=== PATIENT | female | born 1950 | race Caucasian/White ===

== ENCOUNTER 2018-12-02 10:43 | Emergency (ER) | payer MEDICARE, OTHER ==
[2018-12-02] MEDS: Sodium Chloride 0.9% 1,000 ML IV SCH ×2 (11:37→15:39)
[2018-12-02] MEDS ORDERED: Insulin Regular, Human 100 Units/ML 3 ML Vial IV STA (12:02)
[2018-12-02] MEDS ORDERED: cefTRIAXone 2 GM in Sodium Chloride 0.9% 100 ML IV ONE (12:19)
[2018-12-02] MEDS ORDERED: cefTRIAXone 2 GM Vial ONE (12:32)
[2018-12-02] MEDS ORDERED: Sodium Bicarbonate 100 MEQ in Dextrose 5% in Water 100 ML IV STA ×2 (12:42)
--- NOTE | 2018-12-02 12:54 | EDM.PDOC ---
ED HPI GENERAL MEDICAL PROBLEM - General Chief Complaint: Respiratory Problem Stated Complaint: RESPIRATORY DISTRESS Time Seen by Provider: 12/02/18 10:45 Source of Information: Reports: Other (House keper) History Limitations: Reports: Respiratory Distress - History of Present Illness INITIAL COMMENTS - FREE TEXT/NARRATIVE: According to patient's house keeper- pt was short of breath when she went to see her today morning. Hence she brought her to emergency room by private vehicle. Pt is hyperventilating and appears anxious, only c/o is her low back pain. Pt has chronic low back pain and she had epidural injection done 3 days ago. No chest pain. No chest tightness. No nausea or vomiting. Pt claims she has been taking her medications, but does not feel good for past 2 days. No fever or chills. Mild cough. No other complaints. Onset: Today Onset Date: 12/02/18 Onset Time: 08:00 Improves with: Reports: None Worsens with: Reports: None Associated Symptoms: Reports: Shortness of Breath. Denies: Confusion, Chest Pain, Cough, Diaphoresis, Fever/Chills, Headaches, Nausea/Vomiting, Rash, Seizure, Syncope, Weakness - Related Data Allergies Allergy/AdvReac Type Severity Reaction Status Date / Time meperidine [From Demerol] AdvReac Nausea and Verified 05/17/16 09:42 Vomiting Home Meds: Home Meds Gabapentin [Neurontin] 300 mg PO QID 01/24/15 [History] Hydrocodone/Acetaminophen [Hydrocodon-Acetaminophen 5-325] 1 - 2 each PO Q6HR PRN 01/24/15 [History] Insulin Glarg,Human.Rec.Analog [Lantus Solostar] 20 units SQ BEDTIME 01/24/15 [ History] Lisinopril 2.5 mg PO DAILY 01/24/15 [History] Rosuvastatin Calcium [Crestor] 10 mg PO BEDTIME 01/24/15 [History] metFORMIN [Glucophage] 1,000 mg PO DAILY 01/24/15 [History] traZODone 1 - 2 tab PO BEDTIME PRN 01/24/15 [History] Past Medical History HEENT History: Reports: Impaired Vision Cardiovascular History: Reports: Other (See Below) Other Cardiovascular History: right carotid graft. Vessel disease Gastrointestinal History: Reports: Cholelithiasis Genitourinary History: Reports: Urinary Incontinence Musculoskeletal History: Reports: Back Pain, Chronic Endocrine/Metabolic History: Reports: Diabetes, Type II Other Dermatologic History: dark colored spots all over patient's back. - Infectious Disease History Infectious Disease History: Reports: Chicken Pox, Measles, Mumps - Past Surgical History Cardiovascular Surgical History: Reports: Other (See Below) Social & Family History - Family History Family Medical History: Noncontributory Cardiac: Reports: NE GI: Reports: Other (See Below) Other GI Family History: chrohns disease : Reports: Other (See Below) Other Family History: cancer Musculoskeletal: Reports: Arthritis Neurological: Reports: MS Endocrine/Metabolic: Reports: Diabetes, type II Oncologic: Reports: Bladder, Breast - Caffeine Use Caffeine Use: Reports: Coffee ED ROS GENERAL - Review of Systems Review Of Systems: See Below Constitutional: Reports: Weakness. Denies: Fever, Chills, Diaphoresis HEENT: Denies: Ear Pain, Rhinitis, Throat Pain Respiratory: Reports: Shortness of Breath, Cough. Denies: Pleuritic Chest Pain , Sputum, Hemoptysis Cardiovascular: Denies: Chest Pain, Lightheadedness, Syncope GI/Abdominal: Denies: Abdominal Pain, Constipation, Diarrhea, Nausea, Vomiting : Denies: Dysuria, Frequency Musculoskeletal: Reports: Back Pain (chronic). Denies: Joint Pain, Joint Swelling Skin: Denies: Bruising, Pruritis, Rash Neurological: Denies: Confusion, Dizziness, Headache, Numbness, Tingling Psychiatric: Reports: Anxiety. Denies: Agitation, Confusion ED EXAM, GENERAL - Physical Exam Exam: See Below Exam Limited By: No Limitations General Appearance: Alert, WD/WN, Anxious, Other (hyperventilating in the emergency room) Eye Exam: Bilateral Eye: EOMI, PERRL Ears: Normal External Exam, Normal Canal, Hearing Grossly Normal, Normal TMs Ear Exam: Bilateral Ear: Auricle Normal, Canal Normal, TM normal Nose: Normal Inspection, Normal Mucosa, No Blood Throat/Mouth: Normal Inspection, Normal Lips, Normal Teeth, Normal Gums, Normal Oropharynx, Normal Voice, No Airway Compromise Head: Atraumatic, Normocephalic Neck: Normal Inspection, Supple, Non-Tender, Full Range of Motion Respiratory/Chest: No Respiratory Distress, Lungs Clear, Normal Breath Sounds, No Accessory Muscle Use, Chest Non-Tender Cardiovascular: Normal Peripheral Pulses, Regular Rate, Rhythm, No Edema, No Gallop, No JVD, No Murmur, No Rub Peripheral Pulses: 2+: Carotid (L), Carotid (R), Radial (L), Radial (R) GI/Abdominal: Normal Bowel Sounds, Soft, Non-Tender, No Organomegaly, No Distention, No Abnormal Bruit, No Mass Back Exam: Normal Inspection, Full Range of Motion, NT Extremities: Normal Inspection, Normal Range of Motion, Non-Tender, Normal Capillary Refill, No Pedal Edema Skin Exam: Warm, Intact, Other (There is hypo and hyperpigmented superficial skin scar over the back and thigh asso with her chonric use of heat. ) EKG INTERPRETATION EKG Date: 12/02/18 Rate (Beats/Min): 115 EKG Interpretation Comments: Sinus tachycardia Course - Vital Signs Text/Narrative:: Pt's initial vitals were stable. Her SPO2 on room air was 100% on room air. Pt has been hyperventilating and feeling tired. Pt was made to rebreathe through paper bag to recirculate the CO2. And lab work drawn. Pt' POC blood sugar was over 500mgs. The lab blood sugar was 874mg. Also her rest of the lab work was back. Her sodium was low at 129, Chloride of 91, her Potassium was elevated at 6.7 , Her creat was 2.1 ( last creat from 11/18/18 was 0.9) her BUN is 61, Bicarb of 4.7, anion gap of 40. Her troponin was negative. Her D-dimer is elevated. Pt appear to be in diabetic hyperosmolar state with acute renal failure. Pt is Type 2 diabetic on Metformin and Lantus. Has not been taking her meds right or has been acutely ill. Pt weight 100lbs, she received 4.5 unit s of regular insulin bolus followed by 6 units pe hr insulin drip. Also she received 2 litre Iv NS bolus. ABG shows PH of 6/9 , PCO2 is 11 and PO2 is 116. Also her serum and urine ketones are positive. Her CBC showed elevated white count of 18KBlood, culture were drawn and pt started on 2gm Rocephin IV. Her Chest Xray is negative for infiltrate, but was portable x-ray. Also Urine drug screen was done which show opioids, which she is on form her primary care provider. UA is negative for infection. As patient is critically ill, needs to be transferred to tertiary hospital. Contact [facility], and they do not have beef ribber with patient having acute renal failure. I did contact Dr. Granger, The hospitalist at [facility]. Discussed patient with him. As her Anion gap is high and her Bicarb is low recommended Bicarb IV. The only Bicarb in the hospital is 50 meq vial. She did receive 50meq and 1300mg of oral Sodium Bicarb. He did agree to accept patient. D-dimer is 1800, I have not done Chest CTA, as her creat is elevated at 2. Probably can be done when her creat improves.Also code status was discussed with patient. She wants to be full code. Code papers signed today. Pt is alert and oriented at the time of transfer. Pt was transferred by [facility]. Pt's repeat 1 hr Blood sugar was still over 500. Hence I did increase her insulin drip to 9units/hr. Pt is hemodynamically stable at the time of transfer. Further care per Dr. Granger. Last Recorded V/S: Last Vital Signs Temp 97.7 F 12/02/18 11:04 Pulse 122 H 12/02/18 11:04 Resp 36 H 12/02/18 11:04 BP 159/60 H 12/02/18 11:04 Pulse Ox 100 12/02/18 11:04 - Orders/Labs/Meds Orders: Active Orders 24 hr Category Date Time Status Blood Glucose Check, Bedside [RC] Q1HR Care 12/02/18 12:11 Active EKG Documentation Completion [RC] ASDIRECTED Care 12/02/18 11:16 Active Chest 1V Frontal [CR] Stat Exams 12/02/18 11:16 Taken CULTURE BLOOD [BC] Stat Lab 12/02/18 12:20 Received CULTURE BLOOD [BC] Stat Lab 12/02/18 12:45 Received Insulin Regular, Human [NovoLIN R] 100 unit Med 12/02/18 12:15 Active Sodium Chloride 0.9% [Normal Saline] 100 ml IV TITRATE Sodium Bicarbonate [Sodium Bicarbonate 8.4%] 100 meq Med 12/02/18 12:42 Active Dextrose 5% in Water 100 ml IV NOW Sodium Chloride 0.9% [Normal Saline] 1,000 ml Med 12/02/18 11:45 Active IV ASDIRECTED Medication Orders Sodium Chloride (Normal Saline) 1,000 mls @ 999 mls/hr IV ASDIRECTED YVONNE Insulin Human Regular 100 unit (/ Sodium Chloride) 100 mls @ 4.39 mls/hr IV TITRATE YVONNE; Protocol Sodium Bicarbonate 100 meq/ (Dextrose/Water) 200 mls @ 42 mls/hr IV NOW STA; Protocol Stop: 12/02/18 17:27 Labs: Laboratory Tests 12/02/18 12/02/18 12/02/18 Range/Units 11:20 11:28 11:30 WBC 18.0 H D (4.0-11.0) K/uL RBC 4.04 (3.80-5.80) M/uL Hgb 14.1 (11.5-16.5) g/dL Hct 44.6 (37.0-47.0) % MCV 110 H (76-96) fL MCH 34.9 H (27.0-32.0) pg MCHC 31.6 (31.0-35.0) g/dL RDW 12.9 (11.0-16.0) % Plt Count 261 D (150-500) K/uL MPV 10.7 H (6.0-10.0) fL Neut % (Auto) 85.2 H (45.0-70.0) % Lymph % (Auto) 5.6 L (20.0-40.0) % Woods % (Auto) 8.7 (3.0-10.0) % Eos % (Auto) 0.1 L (1.0-5.0) % Baso % (Auto) 0.4 (0.0-0.5) % Neut # (Auto) 15.32 H (2.00-7.50) K/uL Lymph # (Auto) 1.01 L (1.50-4.00) K/uL Woods # (Auto) 1.56 H (0.20-0.80) K/uL Eos # (Auto) 0.01 L (0.04-0.40) K/uL Baso # (Auto) 0.08 (0.02-0.10) K/uL D-Dimer, Quantitative (0-400) ng/mL ABG pH (7.35-7.45) ABG pCO2 (35-45) mmHg ABG pO2 (80-105) mmHg ABG HCO3 (22-26) mmol/L ABG O2 Saturation (95-98) % ABG Base Excess (-2-2) Raymundo Test O2 Delivery Device Sodium (136-145) mmol/L Potassium (3.5-5.1) mmol/L Chloride (98-107) mmol/L Carbon Dioxide (21.0-32.0) mmol/L Anion Gap (5.0-15.0) mmol/L BUN (8-26) mg/dL Creatinine (0.55-1.02) mg/dL Est Cr Clr Drug Dosing Estimated GFR (MDRD) (>60) MLS/MIN BUN/Creatinine Ratio (6-25) Glucose (74-100) mg/dL POC Glucose > 500 H* (74-110) mg/dL Calcium (8.5-10.1) mg/dL Total Bilirubin (0.0-1.0) mg/dL AST (15-37) U/L ALT (12-78) U/L Alkaline Phosphatase (46-116) U/L Troponin I (0.000-0.060) ng/mL Total Protein (6.4-8.2) g/dL Albumin (3.4-5.0) g/dL Globulin (2.2-4.2) g/dL Albumin/Globulin Ratio (0.8-2.0) Urine Color Urine Appearance (CLEAR) Urine pH (5.0-8.0) Ur Specific [place] (1.003-1.030) Urine Protein (NEGATIVE) mg/dL Urine Glucose (UA) (NEGATIVE) mg/dL Urine Ketones (NEGATIVE) mg/dL Urine Occult Blood (NEGATIVE) Urine Nitrite (NEGATIVE) Urine Bilirubin (NEGATIVE) Urine Urobilinogen (0.2-1.0) E.U./dL Ur Leukocyte Esterase (NEGATIVE) Urine RBC /HPF Urine WBC /HPF Urine Opiates Screen Positive H (NEGATIVE) Ur Oxycodone Screen Positive H (NEGATIVE) Urine Methadone Screen Negative (NEGATIVE) Ur Barbiturates Screen Negative (NEGATIVE) Ur Tricyclics Screen Negative (NEGATIVE) Ur Phencyclidine Scrn Negative (NEGATIVE) Ur Amphetamine Screen Negative (NEGATIVE) U Methamphetamines Scrn Negative (NEGATIVE) Urine MDMA Screen Negative (NEGATIVE) U Benzodiazepines Scrn Negative (NEGATIVE) U Cocaine Metab Screen Negative (NEGATIVE) U Marijuana (THC) Screen Negative (NEGATIVE) Ketones (NEGATIVE) 12/02/18 12/02/18 12/02/18 Range/Units 11:30 11:30 11:30 WBC (4.0-11.0) K/uL RBC (3.80-5.80) M/uL Hgb (11.5-16.5) g/dL Hct (37.0-47.0) % MCV (76-96) fL MCH (27.0-32.0) pg MCHC (31.0-35.0) g/dL RDW (11.0-16.0) % Plt Count (150-500) K/uL MPV (6.0-10.0) fL Neut % (Auto) (45.0-70.0) % Lymph % (Auto) (20.0-40.0) % Woods % (Auto) (3.0-10.0) % Eos % (Auto) (1.0-5.0) % Baso % (Auto) (0.0-0.5) % Neut # (Auto) (2.00-7.50) K/uL Lymph # (Auto) (1.50-4.00) K/uL Woods # (Auto) (0.20-0.80) K/uL Eos # (Auto) (0.04-0.40) K/uL Baso # (Auto) (0.02-0.10) K/uL D-Dimer, Quantitative 1820 H (0-400) ng/mL ABG pH (7.35-7.45) ABG pCO2 (35-45) mmHg ABG pO2 (80-105) mmHg ABG HCO3 (22-26) mmol/L ABG O2 Saturation (95-98) % ABG Base Excess (-2-2) Raymundo Test O2 Delivery Device Sodium 129 L (136-145) mmol/L Potassium 6.7 H* D (3.5-5.1) mmol/L Chloride 91 L (98-107) mmol/L Carbon Dioxide 4.7 L* (21.0-32.0) mmol/L Anion Gap 40.0 H (5.0-15.0) mmol/L BUN 62 H* D (8-26) mg/dL Creatinine 2.19 H D (0.55-1.02) mg/dL Est Cr Clr Drug Dosing TNP Estimated GFR (MDRD) 22 L (>60) MLS/MIN BUN/Creatinine Ratio 28.3 H (6-25) Glucose 874 H* D (74-100) mg/dL POC Glucose (74-110) mg/dL Calcium 9.4 (8.5-10.1) mg/dL Total Bilirubin 0.6 D (0.0-1.0) mg/dL AST 19 (15-37) U/L ALT 28 (12-78) U/L Alkaline Phosphatase 83 (46-116) U/L Troponin I < 0.017 D (0.000-0.060) ng/mL Total Protein 8.4 H (6.4-8.2) g/dL Albumin 4.2 (3.4-5.0) g/dL Globulin 4.2 (2.2-4.2) g/dL Albumin/Globulin Ratio 1.0 (0.8-2.0) Urine Color Yellow Urine Appearance Clear (CLEAR) Urine pH 5.5 (5.0-8.0) Ur Specific [place] 1.020 (1.003-1.030) Urine Protein 100 H (NEGATIVE) mg/dL Urine Glucose (UA) 500 H (NEGATIVE) mg/dL Urine Ketones >=160 H (NEGATIVE) mg/dL Urine Occult Blood Moderate H (NEGATIVE) Urine Nitrite Negative (NEGATIVE) Urine Bilirubin Small H (NEGATIVE) Urine Urobilinogen 0.2 (0.2-1.0) E.U./dL Ur Leukocyte Esterase Negative (NEGATIVE) Urine RBC Not seen /HPF Urine WBC Not seen /HPF Urine Opiates Screen (NEGATIVE) Ur Oxycodone Screen (NEGATIVE) Urine Methadone Screen (NEGATIVE) Ur Barbiturates Screen (NEGATIVE) Ur Tricyclics Screen (NEGATIVE) Ur Phencyclidine Scrn (NEGATIVE) Ur Amphetamine Screen (NEGATIVE) U Methamphetamines Scrn (NEGATIVE) Urine MDMA Screen (NEGATIVE) U Benzodiazepines Scrn (NEGATIVE) U Cocaine Metab Screen (NEGATIVE) U Marijuana (THC) Screen (NEGATIVE) Ketones (NEGATIVE) 12/02/18 12/02/18 Range/Units 11:30 11:45 WBC (4.0-11.0) K/uL RBC (3.80-5.80) M/uL Hgb (11.5-16.5) g/dL Hct (37.0-47.0) % MCV (76-96) fL MCH (27.0-32.0) pg MCHC (31.0-35.0) g/dL RDW (11.0-16.0) % Plt Count (150-500) K/uL MPV (6.0-10.0) fL Neut % (Auto) (45.0-70.0) % Lymph % (Auto) (20.0-40.0) % Woods % (Auto) (3.0-10.0) % Eos % (Auto) (1.0-5.0) % Baso % (Auto) (0.0-0.5) % Neut # (Auto) (2.00-7.50) K/uL Lymph # (Auto) (1.50-4.00) K/uL Woods # (Auto) (0.20-0.80) K/uL Eos # (Auto) (0.04-0.40) K/uL Baso # (Auto) (0.02-0.10) K/uL D-Dimer, Quantitative (0-400) ng/mL ABG pH 6.93 L* (7.35-7.45) ABG pCO2 11.5 L* (35-45) mmHg ABG pO2 116 H (80-105) mmHg ABG HCO3 2.4 L (22-26) mmol/L ABG O2 Saturation 95 (95-98) % ABG Base Excess < -30 L (-2-2) Raymundo Test Y O2 Delivery Device Room air Sodium (136-145) mmol/L Potassium (3.5-5.1) mmol/L Chloride (98-107) mmol/L Carbon Dioxide (21.0-32.0) mmol/L Anion Gap (5.0-15.0) mmol/L BUN (8-26) mg/dL Creatinine (0.55-1.02) mg/dL Est Cr Clr Drug Dosing Estimated GFR (MDRD) (>60) MLS/MIN BUN/Creatinine Ratio (6-25) Glucose (74-100) mg/dL POC Glucose (74-110) mg/dL Calcium (8.5-10.1) mg/dL Total Bilirubin (0.0-1.0) mg/dL AST (15-37) U/L ALT (12-78) U/L Alkaline Phosphatase (46-116) U/L Troponin I (0.000-0.060) ng/mL Total Protein (6.4-8.2) g/dL Albumin (3.4-5.0) g/dL Globulin (2.2-4.2) g/dL Albumin/Globulin Ratio (0.8-2.0) Urine Color Urine Appearance (CLEAR) Urine pH (5.0-8.0) Ur Specific [place] (1.003-1.030) Urine Protein (NEGATIVE) mg/dL Urine Glucose (UA) (NEGATIVE) mg/dL Urine Ketones (NEGATIVE) mg/dL Urine Occult Blood (NEGATIVE) Urine Nitrite (NEGATIVE) Urine Bilirubin (NEGATIVE) Urine Urobilinogen (0.2-1.0) E.U./dL Ur Leukocyte Esterase (NEGATIVE) Urine RBC /HPF Urine WBC /HPF Urine Opiates Screen (NEGATIVE) Ur Oxycodone Screen (NEGATIVE) Urine Methadone Screen (NEGATIVE) Ur Barbiturates Screen (NEGATIVE) Ur Tricyclics Screen (NEGATIVE) Ur Phencyclidine Scrn (NEGATIVE) Ur Amphetamine Screen (NEGATIVE) U Methamphetamines Scrn (NEGATIVE) Urine MDMA Screen (NEGATIVE) U Benzodiazepines Scrn (NEGATIVE) U Cocaine Metab Screen (NEGATIVE) U Marijuana (THC) Screen (NEGATIVE) Ketones Moderate H (NEGATIVE) Meds: Medications Generic Name Dose Route Start Last Admin Trade Name Freq PRN Reason Stop Dose Admin Sodium Chloride 1,000 mls @ 999 mls/hr 12/02/18 11:45 Normal Saline IV ASDIRECTED YVONNE Insulin Human Regular 100 unit 100 mls @ 4.39 mls/hr 12/02/18 12:15 / Sodium Chloride IV TITRATE YVONNE Protocol 0.1 UNITS/KG/HR Sodium Bicarbonate 100 meq/ 200 mls @ 42 mls/hr 12/02/18 12:42 Dextrose/Water IV 12/02/18 17:27 NOW STA Protocol Discontinued Medications Generic Name Dose Route Start Last Admin Trade Name Freq PRN Reason Stop Dose Admin Ceftriaxone Sodium Confirm 12/02/18 12:32 Rocephin Administered 12/02/18 12:33 Dose 2 gm .ROUTE .STK-MED ONE Ceftriaxone Sodium 2 gm/ 100 mls @ 100 mls/hr 12/02/18 12:19 Sodium Chloride IV 12/02/18 13:18 ONETIME ONE Insulin Human Regular 4.5 unit 12/02/18 12:02 Humulin R IV 12/02/18 12:03 ONETIME STA Morphine Sulfate Confirm 12/02/18 13:19 Morphine Administered 12/02/18 13:20 Dose 2 mg .ROUTE .STK-MED ONE Departure - Departure Time of Disposition: 12:50 Disposition: DC/Tfer to Acute Hospital 02 Condition: Fair Clinical Impression: Acute renal failure, DKA, type 2, Leucocytosis - Discharge Information *PRESCRIPTION DRUG MONITORING PROGRAM REVIEWED*: Not Applicable *COPY OF PRESCRIPTION DRUG MONITORING REPORT IN PATIENT RICHARD: Not Applicable Referrals: PCP,None [Primary Care Provider] - Forms: ED Department Discharge - Problem List & Annotations (1) Acute renal failure SNOMED Code(s): 42477997 Code(s): N17.9 - ACUTE KIDNEY FAILURE, UNSPECIFIED Status: Acute Current Visit: Yes (2) DKA, type 2 SNOMED Code(s): 561008733, 156212445 Code(s): E11.10 - TYPE 2 DIABETES MELLITUS WITH KETOACIDOSIS WITHOUT COMA Status: Acute Current Visit: Yes (3) Leucocytosis SNOMED Code(s): 414402630, 763382196 Code(s): D72.829 - ELEVATED WHITE BLOOD CELL COUNT, UNSPECIFIED Status: Acute Current Visit: Yes - Problem List Review Problem List Initiated/Reviewed/Updated: Yes - My Orders Last 24 Hours: My Active Orders 12/02/18 11:16 EKG Documentation Completion [RC] ASDIRECTED Chest 1V Frontal [CR] Stat 12/02/18 11:45 Sodium Chloride 0.9% [Normal Saline] 1,000 ml IV ASDIRECTED 12/02/18 12:11 Blood Glucose Check, Bedside [RC] Q1HR 12/02/18 12:15 Insulin Regular, Human [NovoLIN R] 100 unit Sodium Chloride 0.9% [Normal Saline] 100 ml IV TITRATE 12/02/18 12:20 CULTURE BLOOD [BC] Stat 12/02/18 12:42 Sodium Bicarbonate [Sodium Bicarbonate 8.4%] 100 meq Dextrose 5% in Water 100 ml IV NOW 12/02/18 12:45 CULTURE BLOOD [BC] Stat - Assessment/Plan Last 24 Hours: My Active Orders 12/02/18 11:16 EKG Documentation Completion [RC] ASDIRECTED Chest 1V Frontal [CR] Stat 12/02/18 11:45 Sodium Chloride 0.9% [Normal Saline] 1,000 ml IV ASDIRECTED 12/02/18 12:11 Blood Glucose Check, Bedside [RC] Q1HR 12/02/18 12:15 Insulin Regular, Human [NovoLIN R] 100 unit Sodium Chloride 0.9% [Normal Saline] 100 ml IV TITRATE 12/02/18 12:20 CULTURE BLOOD [BC] Stat 12/02/18 12:42 Sodium Bicarbonate [Sodium Bicarbonate 8.4%] 100 meq Dextrose 5% in Water 100 ml IV NOW 12/02/18 12:45 CULTURE BLOOD [BC] Stat Assessment:: DKA in type 2 diabetes Acute renal failure Leucocytosis Plan: Pt is hemodynamically stable at the time of transfer.Pt transferred to [facility] under care of Dr. Granger. All the lab work and medical reports sent with patient. Further care per Dr. Granger.
[2018-12-02] MEDS ORDERED: Morphine 2 MG/ML Syringe ONE (13:19)
[2018-12-02] MEDS ORDERED: Morphine 2 MG/ML Syringe IVPUSH ONE (15:44)
[2018-12-02 16:02] VITALS: BP 121/55
--- NOTE | 2018-12-04 14:12 | CR ---
DATE OF SERVICE: 12/02/18 CLINICAL DATA: short of breath AP PORTABLE CHEST: Comparison is made to a prior exam dated 04/22/2011. The heart size is normal. The patient is status post median sternotomy. There is calcification of the aortic arch. The lungs are clear. No pneumothorax. No pleural effusions. No evidence of acute intrathoracic disease. [id number] [facility]
== END 2018-12-02 13:25 ==
LOC: LB.ED 10:43
DX: N17.9 Acute kidney failure, unspecified (principal); E11.10 Type 2 diabetes mellitus with ketoacidosis without coma; D72.829 Elevated white blood cell count, unspecified; Z79.4 Long term (current) use of insulin; Z88.8 Allergy status to other drugs, medicaments and biological substances
CPT/HCPCS: 36415; 36600; 71045; 80053; 80307; 81001; 82009; 82803; 82962; 84484; 85025; 85379; 87040; 93005; 96361; 96374; 96375; 99285; J0696; J2270; J7030; J7060; J3490

== ENCOUNTER 2020-03-04 09:44 | Observation (INO) | payer MEDICARE, OTHER ==
[2020-03-04] MEDS ORDERED: HYDROmorphone 2 MG/ML SDV IM ONE (11:15)
--- NOTE | 2020-03-04 11:23 | EDM.PDOC ---
ED HPI GENERAL MEDICAL PROBLEM - General Chief Complaint: Lower Extremity Injury/Pain Stated Complaint: FALL Time Seen by Provider: 03/04/20 11:00 Source of Information: Reports: Patient - History of Present Illness INITIAL COMMENTS - FREE TEXT/NARRATIVE: Pt fell last night around 8:30pm and had to crawl to get to her walker and was able to get up into bed; this morning getting out of bed she fell again but made it to the bathroom and while attempting to get off the pot she again fell, each time worsening her pain in her right knees. She was helped by a friend to get up from bathroom and make it to living room where she waited fro EMS to transport to our ER. 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 - Related Data Allergies Allergy/AdvReac Type Severity Reaction Status Date / Time meperidine [From Demerol] AdvReac Nausea and Verified 05/17/16 09:42 Vomiting Home Meds: Home Meds Gabapentin [Neurontin] 300 mg PO QID 01/24/15 [History] Hydrocodone/Acetaminophen [Hydrocodon-Acetaminophen 5-325] 1 - 2 each PO Q6HR PRN 01/24/15 [History] Insulin Glarg,Human.Rec.Analog [Lantus Solostar] 20 units SQ BEDTIME 01/24/15 [History] Lisinopril 2.5 mg PO DAILY 01/24/15 [History] Rosuvastatin Calcium [Crestor] 10 mg PO BEDTIME 01/24/15 [History] metFORMIN [Glucophage] 1,000 mg PO DAILY 01/24/15 [History] traZODone 1 - 2 tab PO BEDTIME PRN 01/24/15 [History] Past Medical History HEENT History: Reports: Impaired Vision Cardiovascular History: Reports: Other (See Below) Other Cardiovascular History: right carotid graft. Vessel disease Gastrointestinal History: Reports: Cholelithiasis Genitourinary History: Reports: Urinary Incontinence Musculoskeletal History: Reports: Back Pain, Chronic Endocrine/Metabolic History: Reports: Diabetes, Type II Other Dermatologic History: dark colored spots all over patient's back. - Infectious Disease History Infectious Disease History: Reports: Chicken Pox, Measles, Mumps - Past Surgical History Cardiovascular Surgical History: Reports: Other (See Below) Social & Family History - Family History Family Medical History: Noncontributory Cardiac: Reports: NE GI: Reports: Other (See Below) Other GI Family History: chrohns disease : Reports: Other (See Below) Other Family History: cancer Musculoskeletal: Reports: Arthritis Neurological: Reports: MS Endocrine/Metabolic: Reports: Diabetes, type II Oncologic: Reports: Bladder, Breast - Caffeine Use Caffeine Use: Reports: Coffee Review of Systems - Review of Systems Review Of Systems: See Below Constitutional: Reports: No Symptoms Eyes: Reports: No Symptoms Ears: Reports: No Symptoms Nose: Reports: No Symptoms Mouth/Throat: Reports: No Symptoms Respiratory: Reports: No Symptoms Cardiovascular: Denies: Chest Pain, Lightheadedness Musculoskeletal: Reports: Joint Pain Skin: Reports: No Symptoms Neurological: Reports: No Symptoms ED EXAM, GENERAL - Physical Exam Exam: See Below Exam Limited By: No Limitations General Appearance: Alert, Moderate Distress Nose: Normal Inspection Throat/Mouth: Normal Inspection Head: Atraumatic Neck: Normal Inspection Respiratory/Chest: No Respiratory Distress, Lungs Clear Cardiovascular: Normal Peripheral Pulses Extremities: Limited Range of Motion. No: Normal Range of Motion, Joint Swelling Neurological: Alert, Oriented, CN II-XII Intact Psychiatric: Normal Affect, Anxious Course - Vital Signs Last Recorded V/S: Last Vital Signs Temp 97 F 03/04/20 10:51 Pulse Resp 16 03/04/20 10:51 BP 168/50 H 03/04/20 10:51 Pulse Ox 98 03/04/20 10:51 - Orders/Labs/Meds Orders: Active Orders 24 hr Category Date Time Status Knee 1V or 2V Rt [CR] Stat Exams 03/04/20 10:56 Ordered Departure - Departure Time of Disposition: 11:47 Disposition: Refer to Observation Condition: Fair Clinical Impression: Pain in lower limb - Discharge Information *PRESCRIPTION DRUG MONITORING PROGRAM REVIEWED*: No *COPY OF PRESCRIPTION DRUG MONITORING REPORT IN PATIENT RICHARD: No Instructions: Acute Knee Pain, Adult Referrals: PCP,None [Primary Care Provider] - Forms: ED Department Discharge Sepsis Event Note (ED) - Evaluation Sepsis Screening Result: No Definite Risk - Focused Exam Vital Signs: Vital Signs Temp Resp BP Pulse Ox 03/04/20 10:51 97 F 16 168/50 H 98 - My Orders Last 24 Hours: My Active Orders 03/04/20 10:56 Knee 1V or 2V Rt [CR] Stat - Assessment/Plan Last 24 Hours: My Active Orders 03/04/20 10:56 Knee 1V or 2V Rt [CR] Stat
[2020-03-04] MEDS: Sodium Chloride 0.9% 1,000 ML IV SCH ×2 (13:27→22:43)
[2020-03-04] MEDS: Acetaminophen/HYDROcodone 325-5 MG Tab PO PRN ×2 (15:00→20:05)
--- NOTE | 2020-03-04 16:18 | PCM.PN ---
- General Info Date of Service: 03/04/20 Admission Dx/Problem (Free Text): Hypoglycemia and Right knee sprain ; Pt had slipped last evening getting up from chair, mild pain to right knee. Woke up this morning and slipped while attempting to go to bathroom and unable to get up. Called a neighbor who came and helped her get up and call 911. She states she had not had breakfast and took 15 units of HumaLog and upon arrival her BS was 33. She was given 2 glasses of OJ with sugar and BS quickly returned to , BS 70 finger stick and lab glucose came back 133 She had xray of right knee which did not reveal fx. Orth dx : right knee sprain Pt placed in right knee immobilizer Physical therapy called for evaluation. Plan is to keep in knee immobilizer and walker use. MR recommended and will mostly likely be ordered by primary as outpatient. Because of hypoglycemia and knee injury and living alone pt was admitted to Observation Unit. She will be seen by her primary care doctor -Dr Yu in AM She will be managed tonight by e-hospitalist. Pt given hydrocodone for pain and placed in knee immobilizer. Also give ADA diet. - Patient Data Vitals - Most Recent: Last Vital Signs Temp 98.0 F 03/04/20 14:19 Pulse 80 03/04/20 14:19 Resp 18 03/04/20 14:19 BP 160/70 H 03/04/20 14:19 Pulse Ox 98 03/04/20 14:19 Weight - Most Recent: 233 lb 11.04 oz Lab Results Last 24 Hours: Laboratory Results - last 24 hr 03/04/20 03/04/20 03/04/20 Range/Units 11:50 11:50 11:52 WBC 11.7 H D (4.0-11.0) K/uL RBC 4.10 (3.80-5.80) M/uL Hgb 13.2 (11.5-16.5) g/dL Hct 38.9 (37.0-47.0) % MCV 95 (76-96) fL MCH 32.2 H (27.0-32.0) pg MCHC 33.9 (31.0-35.0) g/dL RDW 13.4 (11.0-16.0) % Plt Count 160 D (150-500) K/uL MPV 10.6 H (6.0-10.0) fL Neut % (Auto) 84.0 H (45.0-70.0) % Lymph % (Auto) 8.8 L (20.0-40.0) % [place] % (Auto) 6.9 (3.0-10.0) % Eos % (Auto) 0.1 L (1.0-5.0) % Baso % (Auto) 0.2 (0.0-0.5) % Neut # (Auto) 9.79 H (2.00-7.50) K/uL Lymph # (Auto) 1.03 L (1.50-4.00) K/uL [place] # (Auto) 0.81 H (0.20-0.80) K/uL Eos # (Auto) 0.01 L (0.04-0.40) K/uL Baso # (Auto) 0.02 (0.02-0.10) K/uL Sodium 138 (136-145) mmol/L Potassium 4.4 (3.5-5.1) mmol/L Chloride 99 (98-107) mmol/L Carbon Dioxide 24.4 (21.0-32.0) mmol/L Anion Gap 19.0 H (5.0-15.0) mmol/L BUN 18 D (8-26) mg/dL Creatinine 0.84 D (0.55-1.02) mg/dL Est Cr Clr Drug Dosing 53.04 mL/min Estimated GFR (MDRD) > 60 (>60) MLS/MIN BUN/Creatinine Ratio 21.4 (6-25) Glucose 75 D (74-100) mg/dL POC Glucose (74-110) mg/dL Calcium 9.6 (8.5-10.1) mg/dL Total Bilirubin 0.6 (0.0-1.0) mg/dL AST 36 (15-37) U/L ALT 54 (12-78) U/L Alkaline Phosphatase 67 (46-116) U/L Total Protein 7.7 (6.4-8.2) g/dL Albumin 3.9 (3.4-5.0) g/dL Globulin 3.8 (2.2-4.2) g/dL Albumin/Globulin Ratio 1.0 (0.8-2.0) COVID-19 (JOSE A) Negative 03/04/20 Range/Units 14:06 WBC (4.0-11.0) K/uL RBC (3.80-5.80) M/uL Hgb (11.5-16.5) g/dL Hct (37.0-47.0) % MCV (76-96) fL MCH (27.0-32.0) pg MCHC (31.0-35.0) g/dL RDW (11.0-16.0) % Plt Count (150-500) K/uL MPV (6.0-10.0) fL Neut % (Auto) (45.0-70.0) % Lymph % (Auto) (20.0-40.0) % [place] % (Auto) (3.0-10.0) % Eos % (Auto) (1.0-5.0) % Baso % (Auto) (0.0-0.5) % Neut # (Auto) (2.00-7.50) K/uL Lymph # (Auto) (1.50-4.00) K/uL [place] # (Auto) (0.20-0.80) K/uL Eos # (Auto) (0.04-0.40) K/uL Baso # (Auto) (0.02-0.10) K/uL Sodium (136-145) mmol/L Potassium (3.5-5.1) mmol/L Chloride (98-107) mmol/L Carbon Dioxide (21.0-32.0) mmol/L Anion Gap (5.0-15.0) mmol/L BUN (8-26) mg/dL Creatinine (0.55-1.02) mg/dL Est Cr Clr Drug Dosing mL/min Estimated GFR (MDRD) (>60) MLS/MIN BUN/Creatinine Ratio (6-25) Glucose (74-100) mg/dL POC Glucose 133 H (74-110) mg/dL Calcium (8.5-10.1) mg/dL Total Bilirubin (0.0-1.0) mg/dL AST (15-37) U/L ALT (12-78) U/L Alkaline Phosphatase (46-116) U/L Total Protein (6.4-8.2) g/dL Albumin (3.4-5.0) g/dL Globulin (2.2-4.2) g/dL Albumin/Globulin Ratio (0.8-2.0) COVID-19 (JOSE A) Med Orders - Current: Current Medications Hydrocodone Bitart/Acetaminophen ([place] 325-5 Mg) 2 tab PO Q4H PRN PRN Reason: Pain (moderate 4-6) Last Admin: 03/04/20 15:00 Dose: 2 tab Documented by: Sodium Chloride (Normal Saline) 1,000 mls @ 125 mls/hr IV ASDIRECTED PENDING SALE TO [facility] Last Admin: 03/04/20 13:27 Dose: 125 mls/hr Documented by: Discontinued Medications Hydromorphone HCl (Dilaudid) 1 mg IM ONETIME ONE Stop: 03/04/20 11:16 Last Admin: 03/04/20 11:23 Dose: 1 mg Documented by: Sepsis Event Note - Evaluation Sepsis Screening Result: No Definite Risk - Focused Exam Vital Signs: Vital Signs Temp Pulse Resp BP Pulse Ox 03/04/20 14:19 98.0 F 80 18 160/70 H 98 03/04/20 11:36 97.0 F 88 16 156/70 H 98 03/04/20 10:51 97 F 16 168/50 H 98 - Problem List Review Problem List Initiated/Reviewed/Updated: Yes - My Orders Last 24 Hours: My Active Orders 03/04/20 10:56 Knee 1V or 2V Rt [CR] Stat 03/04/20 11:36 Vital Signs [RC] PER UNIT ROUTINE 03/04/20 11:45 Sodium Chloride 0.9% [Normal Saline] 1,000 ml IV ASDIRECTED 03/04/20 11:59 NAMRATA Bandage [Elastic Wrap] [OM.PC] Routine 03/04/20 13:12 Admission Status [Patient Status] [ADT] Routine 03/04/20 14:23 Consult to Physical Therapy [PT Evaluation and Treatment] [CONS] Routine 03/04/20 15:02 Acetaminophen/HYDROcodone [[place] 325-5 MG] 2 tab PO Q4H PRN 03/04/20 15:31 Immobilizer [RC] ASDIRECTED 03/04/20 Dinner Consistent Carbohydrate Diet [DIET]
[2020-03-04] MEDS ORDERED: traZODone 50 MG Tab PO PRN (17:03)
[2020-03-04] MEDS ORDERED: 50% Dextrose in Water 50 ML Syringe IVPUSH PRN (17:07)
--- NOTE | 2020-03-04 17:12 | PCM.PN ---
- General Info Date of Service: 03/04/20 - Patient Data Vitals - Most Recent: Last Vital Signs Temp 36.7 C 03/04/20 14:19 Pulse 80 03/04/20 14:19 Resp 18 03/04/20 14:19 BP 160/70 H 03/04/20 14:19 Pulse Ox 98 03/04/20 14:19 Weight - Most Recent: 106 kg Lab Results Last 24 Hours: Laboratory Results - last 24 hr 03/04/20 03/04/20 03/04/20 Range/Units 11:50 11:50 11:52 WBC 11.7 H D (4.0-11.0) K/uL RBC 4.10 (3.80-5.80) M/uL Hgb 13.2 (11.5-16.5) g/dL Hct 38.9 (37.0-47.0) % MCV 95 (76-96) fL MCH 32.2 H (27.0-32.0) pg MCHC 33.9 (31.0-35.0) g/dL RDW 13.4 (11.0-16.0) % Plt Count 160 D (150-500) K/uL MPV 10.6 H (6.0-10.0) fL Neut % (Auto) 84.0 H (45.0-70.0) % Lymph % (Auto) 8.8 L (20.0-40.0) % [place] % (Auto) 6.9 (3.0-10.0) % Eos % (Auto) 0.1 L (1.0-5.0) % Baso % (Auto) 0.2 (0.0-0.5) % Neut # (Auto) 9.79 H (2.00-7.50) K/uL Lymph # (Auto) 1.03 L (1.50-4.00) K/uL [place] # (Auto) 0.81 H (0.20-0.80) K/uL Eos # (Auto) 0.01 L (0.04-0.40) K/uL Baso # (Auto) 0.02 (0.02-0.10) K/uL Sodium 138 (136-145) mmol/L Potassium 4.4 (3.5-5.1) mmol/L Chloride 99 (98-107) mmol/L Carbon Dioxide 24.4 (21.0-32.0) mmol/L Anion Gap 19.0 H (5.0-15.0) mmol/L BUN 18 D (8-26) mg/dL Creatinine 0.84 D (0.55-1.02) mg/dL Est Cr Clr Drug Dosing 53.04 mL/min Estimated GFR (MDRD) > 60 (>60) MLS/MIN BUN/Creatinine Ratio 21.4 (6-25) Glucose 75 D (74-100) mg/dL POC Glucose (74-110) mg/dL Calcium 9.6 (8.5-10.1) mg/dL Total Bilirubin 0.6 (0.0-1.0) mg/dL AST 36 (15-37) U/L ALT 54 (12-78) U/L Alkaline Phosphatase 67 (46-116) U/L Total Protein 7.7 (6.4-8.2) g/dL Albumin 3.9 (3.4-5.0) g/dL Globulin 3.8 (2.2-4.2) g/dL Albumin/Globulin Ratio 1.0 (0.8-2.0) COVID-19 (JOSE A) Negative 03/04/20 Range/Units 14:06 WBC (4.0-11.0) K/uL RBC (3.80-5.80) M/uL Hgb (11.5-16.5) g/dL Hct (37.0-47.0) % MCV (76-96) fL MCH (27.0-32.0) pg MCHC (31.0-35.0) g/dL RDW (11.0-16.0) % Plt Count (150-500) K/uL MPV (6.0-10.0) fL Neut % (Auto) (45.0-70.0) % Lymph % (Auto) (20.0-40.0) % [place] % (Auto) (3.0-10.0) % Eos % (Auto) (1.0-5.0) % Baso % (Auto) (0.0-0.5) % Neut # (Auto) (2.00-7.50) K/uL Lymph # (Auto) (1.50-4.00) K/uL [place] # (Auto) (0.20-0.80) K/uL Eos # (Auto) (0.04-0.40) K/uL Baso # (Auto) (0.02-0.10) K/uL Sodium (136-145) mmol/L Potassium (3.5-5.1) mmol/L Chloride (98-107) mmol/L Carbon Dioxide (21.0-32.0) mmol/L Anion Gap (5.0-15.0) mmol/L BUN (8-26) mg/dL Creatinine (0.55-1.02) mg/dL Est Cr Clr Drug Dosing mL/min Estimated GFR (MDRD) (>60) MLS/MIN BUN/Creatinine Ratio (6-25) Glucose (74-100) mg/dL POC Glucose 133 H (74-110) mg/dL Calcium (8.5-10.1) mg/dL Total Bilirubin (0.0-1.0) mg/dL AST (15-37) U/L ALT (12-78) U/L Alkaline Phosphatase (46-116) U/L Total Protein (6.4-8.2) g/dL Albumin (3.4-5.0) g/dL Globulin (2.2-4.2) g/dL Albumin/Globulin Ratio (0.8-2.0) COVID-19 (JOSE A) Med Orders - Current: Current Medications Hydrocodone Bitart/Acetaminophen ([place] 325-5 Mg) 2 tab PO Q4H PRN PRN Reason: Pain (moderate 4-6) Last Admin: 03/04/20 15:00 Dose: 2 tab Documented by: Aspirin (Halfprin) 81 mg PO DAILY YVONNE Dextrose/Water (Dextrose 50% In Water) 25 ml IVPUSH ASDIRECTED PRN PRN Reason: Hypoglycemia Enoxaparin Sodium (Lovenox) 30 mg SUBCUT DAILY YVONNE Sodium Chloride (Normal Saline) 1,000 mls @ 125 mls/hr IV ASDIRECTED YVONNE Last Admin: 03/04/20 13:27 Dose: 125 mls/hr Documented by: Non-Formulary Medication (Rosuvastatin Calcium [Crestor]) 10 mg PO BEDTIME YVONNE Trazodone HCl (Trazodone) 0 mg PO BEDTIME PRN PRN Reason: Insomnia Discontinued Medications Hydromorphone HCl (Dilaudid) 1 mg IM ONETIME ONE Stop: 03/04/20 11:16 Last Admin: 03/04/20 11:23 Dose: 1 mg Documented by: Sepsis Event Note - Evaluation Sepsis Screening Result: No Definite Risk - Focused Exam Vital Signs: Vital Signs Temp Pulse Resp BP Pulse Ox 03/04/20 14:19 36.7 C 80 18 160/70 H 98 03/04/20 11:36 36.1 C 88 16 156/70 H 98 03/04/20 10:51 36.1 C 16 168/50 H 98 - Problem List & Annotations (1) Hypoglycemia SNOMED Code(s): 263586600 Code(s): E16.2 - HYPOGLYCEMIA, UNSPECIFIED Status: Acute Current Visit: Yes - Problem List Review Problem List Initiated/Reviewed/Updated: Yes - My Orders Last 24 Hours: My Active Orders 03/04/20 16:56 Patient Status [ADT] Routine Oxygen Therapy [RC] PRN VTE/DVT Education [RC] Per Unit Routine Vital Signs [RC] Q4H Resuscitation Status Routine 03/04/20 17:02 Blood Glucose Check, Bedside [RC] WITHMEALSANDBED Oxygen Therapy [RC] PRN VTE/DVT Education [RC] Per Unit Routine Vital Signs [RC] Q4H 03/04/20 17:03 [email or web address] See Dose Instructions PO BEDTIME PRN Sequential Compression Device [OM.PC] Per Unit Routine 03/04/20 17:07 Diabetes Education [RC] Click to Edit Notify Provider [RC] PRN Consult to Customer Resolution Specialist [CONS] Routine Dextrose 50% in Water 25 ml IVPUSH ASDIRECTED PRN 03/04/20 17:08 Orthostatic Vital Signs [RC] ASDIRECTED GLYCOSYLATED HEMOGLOBIN,HGBA1C [CHEM] Routine 03/04/20 20:00 Rosuvastatin Calcium [Crestor] 10 mg PO BEDTIME 03/05/20 08:00 Aspirin [Halfprin] 81 mg PO DAILY Enoxaparin [Lovenox] 30 mg SUBCUT DAILY - Assessment Assessment:: Juliette Barnhart Hospitalist CONSULTATION NOTE: eHospitalist was contacted by ANTONIO Lynch with request of consultation for admission support: Reason for consult: Frequent falls, hypoglycemia HPI: Patient is a 69-year-old female with past medical history insulin-dependent diabetes, CAD, HTN, HLD, chronic back pain who presented to the ED after having 3 falls in the last 12 hours. Patient reports that last night she had a mechanical fall in the kitchen when she slipped on wet hardwood floor. Says she fell on her right knee, did not hit her head, did not lose consciousness, did not have any chest pain or shortness of breath or dizziness prior to the fall. Since then, she says her right knee has been hurting and that she has not been able to bear weight on her right knee. Reports falling again this morning as she was trying to get out of bed despite using a walker, once again a couple minutes later which prompted her to come to the ED for evaluation. Denies any fevers or chills, chest pain, shortness of breath, headaches or diz ziness, focal weakness, numbness or tingling in upper or lower extremities, abdominal or urinary symptoms. Says she has been eating and drinking okay. Reports taking Levemir 40 units in the morning, says she took it this morning but has not had a chance to eat. She also takes 15 units of lispro 3 times a day with meals. Her blood glucose upon arrival to the ED was 33 which is quickly corrected with orange juice. Says she has hypoglycemic symptoms and hypoglycemia but once a week. Denies any hypoglycemia last week. Home Medications: Reviewed Pertinent Medical History: HTN, HLD, insulin-dependent diabetes, CAD, chronic back pain Pertinent Social History: Half pack a day smoker, occasional EtOH use, denies drugs, lives alone, uses a walker. Exam (performed via interactive video with assistance of bedside nurse): General: Alert, cooperative, and in no acute distress HEENT: Oral mucosa pink and moist without erythema. Has dentures Lungs: CTA B CV: RRR, no murmurs Ext: Right knee slightly swollen, does not appear red or inflamed. No fluctuance or warmth per bedside nurse. Skin: Has bruising and right upper extremity Neuro: AAO x3, no focal deficits Labs unremarkable except WBC count of 11.7. Troponin negative. COVID-19 BCR negative. Imaging of right knee-report pending and I am unable to review the images but no fractures per report. Assessment and Plan: Patient is a 69-year-old female with pmh of IDDM, CAD, HTN, HLD, chronic back pain who is being admitted for observation, physical therapy after frequent falls at home as well as close blood glucose monitoring for hypoglycemia. -Monitor blood glucose every hour, corrected with dextrose IV if less than 70. -Hold off on restarting home insulin insulin blood glucoses stable. -Resume carb controlled diet -Check A1c, orthostatics -Resume Lisinopril tomorrow if BP stable, orthostatics neg. -Physical and Occupational Therapy clearance -Restart home antihypertensives, pain medications. -Follow-up right knee x-ray. -Recommend cutting back on opiates on discharge as patient is high risk for falls. -DVT Px: SCDs, lovenox Thank you for including Juliette Barnhart Hospitalist in the patients care. This serv ice is available for further assistance as requested by your care team by calling [phone].
[2020-03-04 17:25] LABS: HEMOGLOBIN A1C 7.4 % (< 5.7)
[2020-03-04] MEDS: Enoxaparin 40 MG/0.4 ML Syringe SUBCUT SCH (18:24)
[2020-03-04] MEDS ORDERED: Enoxaparin 40 MG/0.4 ML Syringe ONE (18:27)
--- NOTE | 2020-03-04 22:20 | CR ---
DATE OF SERVICE: 03/04/2020 CLINICAL DATA: Right knee injury after fall. RIGHT KNEE: Mild osteoarthritic changes. There is a small joint effusion. No acute abnormalities. No lytic or blastic bone lesions. [id number] [facility]
[2020-03-05] MEDS: Acetaminophen/HYDROcodone 325-5 MG Tab PO PRN ×4 (00:45→20:32)
[2020-03-05] MEDS ORDERED: Aspirin 81 MG Tab.EC PO SCH (08:00)
[2020-03-05] MEDS: ASPIRIN 81 MG PO SCH (08:04)
--- NOTE | 2020-03-05 08:12 | PCM.PN ---
- General Info Date of Service: 03/05/20 Functional Status: Reports: Pain Controlled - Review of Systems General: Reports: No Symptoms. Denies: Fever, Weakness HEENT: Reports: No Symptoms Pulmonary: Reports: No Symptoms. Denies: Shortness of Breath Cardiovascular: Reports: No Symptoms. Denies: Chest Pain Gastrointestinal: Reports: No Symptoms. Denies: Abdominal Pain Musculoskeletal: Reports: Leg Pain, Joint Pain Skin: Reports: No Symptoms Neurological: Reports: No Symptoms Psychiatric: Reports: No Symptoms - Patient Data Vitals - Most Recent: Last Vital Signs Temp 97.6 F 03/05/20 04:00 Pulse 66 03/05/20 04:00 Resp 16 03/05/20 04:00 BP 130/68 03/05/20 04:00 Pulse Ox 98 03/05/20 04:00 Weight - Most Recent: 106 lb Lab Results Last 24 Hours: Laboratory Results - last 24 hr 03/04/20 03/04/20 03/04/20 Range/Units 11:50 11:50 11:50 WBC 11.7 H D (4.0-11.0) K/uL RBC 4.10 (3.80-5.80) M/uL Hgb 13.2 (11.5-16.5) g/dL Hct 38.9 (37.0-47.0) % MCV 95 (76-96) fL MCH 32.2 H (27.0-32.0) pg MCHC 33.9 (31.0-35.0) g/dL RDW 13.4 (11.0-16.0) % Plt Count 160 D (150-500) K/uL MPV 10.6 H (6.0-10.0) fL Neut % (Auto) 84.0 H (45.0-70.0) % Lymph % (Auto) 8.8 L (20.0-40.0) % [place] % (Auto) 6.9 (3.0-10.0) % Eos % (Auto) 0.1 L (1.0-5.0) % Baso % (Auto) 0.2 (0.0-0.5) % Neut # (Auto) 9.79 H (2.00-7.50) K/uL Lymph # (Auto) 1.03 L (1.50-4.00) K/uL [place] # (Auto) 0.81 H (0.20-0.80) K/uL Eos # (Auto) 0.01 L (0.04-0.40) K/uL Baso # (Auto) 0.02 (0.02-0.10) K/uL Sodium 138 (136-145) mmol/L Potassium 4.4 (3.5-5.1) mmol/L Chloride 99 (98-107) mmol/L Carbon Dioxide 24.4 (21.0-32.0) mmol/L Anion Gap 19.0 H (5.0-15.0) mmol/L BUN 18 D (8-26) mg/dL Creatinine 0.84 D (0.55-1.02) mg/dL Est Cr Clr Drug Dosing 53.04 mL/min Estimated GFR (MDRD) > 60 (>60) MLS/MIN BUN/Creatinine Ratio 21.4 (6-25) Glucose 75 D (74-100) mg/dL POC Glucose (74-110) mg/dL Hemoglobin A1c 7.4 H (< 5.7) % Calcium 9.6 (8.5-10.1) mg/dL Total Bilirubin 0.6 (0.0-1.0) mg/dL AST 36 (15-37) U/L ALT 54 (12-78) U/L Alkaline Phosphatase 67 (46-116) U/L Total Protein 7.7 (6.4-8.2) g/dL Albumin 3.9 (3.4-5.0) g/dL Globulin 3.8 (2.2-4.2) g/dL Albumin/Globulin Ratio 1.0 (0.8-2.0) COVID-19 (JOSE A) 03/04/20 03/04/20 03/04/20 Range/Units 11:52 14:06 19:57 WBC (4.0-11.0) K/uL RBC (3.80-5.80) M/uL Hgb (11.5-16.5) g/dL Hct (37.0-47.0) % MCV (76-96) fL MCH (27.0-32.0) pg MCHC (31.0-35.0) g/dL RDW (11.0-16.0) % Plt Count (150-500) K/uL MPV (6.0-10.0) fL Neut % (Auto) (45.0-70.0) % Lymph % (Auto) (20.0-40.0) % [place] % (Auto) (3.0-10.0) % Eos % (Auto) (1.0-5.0) % Baso % (Auto) (0.0-0.5) % Neut # (Auto) (2.00-7.50) K/uL Lymph # (Auto) (1.50-4.00) K/uL [place] # (Auto) (0.20-0.80) K/uL Eos # (Auto) (0.04-0.40) K/uL Baso # (Auto) (0.02-0.10) K/uL Sodium (136-145) mmol/L Potassium (3.5-5.1) mmol/L Chloride (98-107) mmol/L Carbon Dioxide (21.0-32.0) mmol/L Anion Gap (5.0-15.0) mmol/L BUN (8-26) mg/dL Creatinine (0.55-1.02) mg/dL Est Cr Clr Drug Dosing mL/min Estimated GFR (MDRD) (>60) MLS/MIN BUN/Creatinine Ratio (6-25) Glucose (74-100) mg/dL POC Glucose 133 H 187 H (74-110) mg/dL Hemoglobin A1c (< 5.7) % Calcium (8.5-10.1) mg/dL Total Bilirubin (0.0-1.0) mg/dL AST (15-37) U/L ALT (12-78) U/L Alkaline Phosphatase (46-116) U/L Total Protein (6.4-8.2) g/dL Albumin (3.4-5.0) g/dL Globulin (2.2-4.2) g/dL Albumin/Globulin Ratio (0.8-2.0) COVID-19 (JOSE A) Negative 03/05/20 Range/Units 06:57 WBC (4.0-11.0) K/uL RBC (3.80-5.80) M/uL Hgb (11.5-16.5) g/dL Hct (37.0-47.0) % MCV (76-96) fL MCH (27.0-32.0) pg MCHC (31.0-35.0) g/dL RDW (11.0-16.0) % Plt Count (150-500) K/uL MPV (6.0-10.0) fL Neut % (Auto) (45.0-70.0) % Lymph % (Auto) (20.0-40.0) % [place] % (Auto) (3.0-10.0) % Eos % (Auto) (1.0-5.0) % Baso % (Auto) (0.0-0.5) % Neut # (Auto) (2.00-7.50) K/uL Lymph # (Auto) (1.50-4.00) K/uL [place] # (Auto) (0.20-0.80) K/uL Eos # (Auto) (0.04-0.40) K/uL Baso # (Auto) (0.02-0.10) K/uL Sodium (136-145) mmol/L Potassium (3.5-5.1) mmol/L Chloride (98-107) mmol/L Carbon Dioxide (21.0-32.0) mmol/L Anion Gap (5.0-15.0) mmol/L BUN (8-26) mg/dL Creatinine (0.55-1.02) mg/dL Est Cr Clr Drug Dosing mL/min Estimated GFR (MDRD) (>60) MLS/MIN BUN/Creatinine Ratio (6-25) Glucose (74-100) mg/dL POC Glucose 161 H (74-110) mg/dL Hemoglobin A1c (< 5.7) % Calcium (8.5-10.1) mg/dL Total Bilirubin (0.0-1.0) mg/dL AST (15-37) U/L ALT (12-78) U/L Alkaline Phosphatase (46-116) U/L Total Protein (6.4-8.2) g/dL Albumin (3.4-5.0) g/dL Globulin (2.2-4.2) g/dL Albumin/Globulin Ratio (0.8-2.0) COVID-19 (JOSE A) Med Orders - Current: Current Medications Hydrocodone Bitart/Acetaminophen ([place] 325-5 Mg) 2 tab PO Q4H PRN PRN Reason: Pain (moderate 4-6) Last Admin: 03/05/20 08:02 Dose: 2 tab Documented by: Aspirin (Halfprin) 81 mg PO DAILY [facility] Last Admin: 03/05/20 08:04 Dose: 81 mg Documented by: Dextrose/Water (Dextrose 50% In Water) 25 ml IVPUSH ASDIRECTED PRN PRN Reason: Hypoglycemia Enoxaparin Sodium (Lovenox) 40 mg SUBCUT DAILY [facility] Last Admin: 03/04/20 18:24 Dose: 40 mg Documented by: Sodium Chloride (Normal Saline) 1,000 mls @ 125 mls/hr IV ASDIRECTED [facility] Last Admin: 03/04/20 22:43 Dose: 125 mls/hr Documented by: (Rosuvastatin Calcium [Crestor] 10 Mg)Own Med 10 mg PO BEDTIME [facility] Trazodone HCl (Trazodone) 0 mg PO BEDTIME PRN PRN Reason: Insomnia Discontinued Medications Enoxaparin Sodium (Lovenox) Confirm Administered Dose 40 mg .ROUTE .STK-MED ONE Stop: 03/04/20 18:28 Last Admin: 03/04/20 20:15 Dose: Not Given Documented by: Hydromorphone HCl (Dilaudid) 1 mg IM ONETIME ONE Stop: 03/04/20 11:16 Last Admin: 03/04/20 11:23 Dose: 1 mg Documented by: (Rosuvastatin Calcium [Crestor] 10 Mg)Own Med 10 mg PO ONETIME ONE Stop: 03/04/20 22:16 Last Admin: 03/04/20 22:44 Dose: 10 mg Documented by: - Exam General: Alert, Oriented, Cooperative, No Acute Distress HEENT: Pupils Equal, Pupils Reactive Neck: Supple, Trachea Midline Lungs: Clear to Auscultation, Normal Respiratory Effort Cardiovascular: Regular Rate, Regular Rhythm Back Exam: Normal Inspection, Full Range of Motion Extremities: Normal Inspection, Leg Pain, Limited Range of Motion. No: Joint Swelling Skin: Warm, Dry Neurological: No New Focal Deficit Sepsis Event Note - Evaluation Sepsis Screening Result: No Definite Risk - Focused Exam Vital Signs: Vital Signs Temp Pulse Resp BP Pulse Ox 03/05/20 04:00 97.6 F 66 16 130/68 98 09/15/20 00:00 97 F 62 16 143/74 H 97 03/04/20 21:02 97.4 F 66 16 136/74 100 03/04/20 20:56 97.3 F 69 16 144/47 H 99 - Problem List Review Problem List Initiated/Reviewed/Updated: Yes - My Orders Last 24 Hours: My Active Orders 03/04/20 11:36 Vital Signs [RC] PER UNIT ROUTINE 03/04/20 11:45 Sodium Chloride 0.9% [Normal Saline] 1,000 ml IV ASDIRECTED 03/04/20 11:59 NAMRATA Bandage [Elastic Wrap] [OM.PC] Routine 03/04/20 13:12 Admission Status [Patient Status] [ADT] Routine 03/04/20 14:23 Consult to Physical Therapy [PT Evaluation and Treatment] [CONS] Routine 03/04/20 15:02 Acetaminophen/HYDROcodone [[place] 325-5 MG] 2 tab PO Q4H PRN 03/04/20 15:31 Immobilizer [RC] ASDIRECTED 03/04/20 Dinner Consistent Carbohydrate Diet [DIET] 03/05/20 08:15 lisinopriL [Prinivil] 10 mg PO DAILY - Assessment Assessment:: Juliette Barnhart Hospitalist CONSULTATION NOTE: eHospitalist was contacted by ANTONIO Lynch with request of consultation for admission support: Reason for consult: Frequent falls, hypoglycemia HPI: Patient is a 69-year-old female with past medical history insulin-dependent diabetes, CAD, HTN, HLD, chronic back pain who presented to the ED after having 3 falls in the last 12 hours. Patient reports that last night she had a mechanical fall in the kitchen when she slipped on wet hardwood floor. Says she fell on her right knee, did not hit her head, did not lose consciousness, did not have any chest pain or shortness of breath or dizziness prior to the fall. Since then, she says her right knee has been hurting and that she has not been able to bear weight on her right knee. Reports falling again this morning as she was trying to get out of bed despite using a walker, once again a couple minutes later which prompted her to come to the ED for evaluation. Denies any fevers or chills, chest pain, shortness of breath, headaches or dizziness, focal weakness, numbness or tingling in upper or lower extremities, abdominal or urinary symptoms. Says she has been eating and drinking okay. Reports taking Levemir 40 units in the morning, says she took it this morning but has not had a chance to eat. She also takes 15 units of lispro 3 times a day with meals. Her blood glucose upon arrival to the ED was 33 which is quickly corrected with orange juice. Says she has hypoglycemic symptoms and hypoglycemia but once a week. Denies any hypoglycemia last week. Home Medications: Reviewed Pertinent Medical History: HTN, HLD, insulin-dependent diabetes, CAD, chronic back pain Pertinent Social History: Half pack a day smoker, occasional EtOH use, denies drugs, lives alone, uses a walker. Exam (performed via interactive video with assistance of bedside nurse): General: Alert, cooperative, and in no acute distress HEENT: Oral mucosa pink and moist without erythema. Has dentures Lungs: CTA B CV: RRR, no murmurs Ext: Right knee slightly swollen, does not appear red or inflamed. No fluctuance or warmth per bedside nurse. Skin: Has bruising and right upper extremity Neuro: AAO x3, no focal deficits Labs unremarkable except WBC count of 11.7. Troponin negative. COVID-19 BCR negative. Imaging of right knee-report pending and I am unable to review the images but no fractures per report. Assessment and Plan: Patient is a 69-year-old female with pmh of IDDM, CAD, HTN, HLD, chronic back pain who is being admitted for observation, physical therapy after frequent falls at home as well as close blood glucose monitoring for hypoglycemia. -Monitor blood glucose every hour, corrected with dextrose IV if less than 70. -Hold off on restarting home insulin insulin blood glucoses stable. -Resume carb controlled diet -Check A1c, orthostatics -Resume Lisinopril tomorrow if BP stable, orthostatics neg. -Physical and Occupational Therapy clearance -Restart home antihypertensives, pain medications. -Follow-up right knee x-ray. -Recommend cutting back on opiates on discharge as patient is high risk for falls. -DVT Px: SCDs, lovenox Thank you [facility]. This service is available for further assistance as requested by your care team by calling [phone]. - Plan Plan:: PT daily; If pt remains in Observation until we will do in-patien MRI of her right knee otherwise pmd will order out patient MRI for future date. Pt followed by e-hospitalist.
--- NOTE | 2020-03-05 08:41 | PCM.PN ---
- General Info Date of Service: 03/05/20 Subjective Update: Patient stable and resting in bed. Good appetite but has right knee pain on movement. She does not feel she is able to bear weight. She lives at home alone and does not feel she can manage by herself. Functional Status: Reports: Pain Controlled, Tolerating Diet - Review of Systems General: Reports: No Symptoms HEENT: Reports: No Symptoms Pulmonary: Reports: No Symptoms Cardiovascular: Reports: No Symptoms Gastrointestinal: Reports: No Symptoms Genitourinary: Reports: No Symptoms Musculoskeletal: Reports: Joint Pain Skin: Reports: No Symptoms Neurological: Reports: No Symptoms Psychiatric: Reports: No Symptoms - Patient Data Vitals - Most Recent: Last Vital Signs Temp 36.9 C 03/05/20 08:00 Pulse 80 03/05/20 08:00 Resp 16 03/05/20 08:00 BP 187/54 H 03/05/20 08:00 Pulse Ox 97 03/05/20 08:00 Weight - Most Recent: 48.081 kg Lab Results Last 24 Hours: Laboratory Results - last 24 hr 03/04/20 03/04/20 03/04/20 Range/Units 11:50 11:50 11:50 WBC 11.7 H D (4.0-11.0) K/uL RBC 4.10 (3.80-5.80) M/uL Hgb 13.2 (11.5-16.5) g/dL Hct 38.9 (37.0-47.0) % MCV 95 (76-96) fL MCH 32.2 H (27.0-32.0) pg MCHC 33.9 (31.0-35.0) g/dL RDW 13.4 (11.0-16.0) % Plt Count 160 D (150-500) K/uL MPV 10.6 H (6.0-10.0) fL Neut % (Auto) 84.0 H (45.0-70.0) % Lymph % (Auto) 8.8 L (20.0-40.0) % [place] % (Auto) 6.9 (3.0-10.0) % Eos % (Auto) 0.1 L (1.0-5.0) % Baso % (Auto) 0.2 (0.0-0.5) % Neut # (Auto) 9.79 H (2.00-7.50) K/uL Lymph # (Auto) 1.03 L (1.50-4.00) K/uL [place] # (Auto) 0.81 H (0.20-0.80) K/uL Eos # (Auto) 0.01 L (0.04-0.40) K/uL Baso # (Auto) 0.02 (0.02-0.10) K/uL Sodium 138 (136-145) mmol/L Potassium 4.4 (3.5-5.1) mmol/L Chloride 99 (98-107) mmol/L Carbon Dioxide 24.4 (21.0-32.0) mmol/L Anion Gap 19.0 H (5.0-15.0) mmol/L BUN 18 D (8-26) mg/dL Creatinine 0.84 D (0.55-1.02) mg/dL Est Cr Clr Drug Dosing 53.04 mL/min Estimated GFR (MDRD) > 60 (>60) MLS/MIN BUN/Creatinine Ratio 21.4 (6-25) Glucose 75 D (74-100) mg/dL POC Glucose (74-110) mg/dL Hemoglobin A1c 7.4 H (< 5.7) % Calcium 9.6 (8.5-10.1) mg/dL Total Bilirubin 0.6 (0.0-1.0) mg/dL AST 36 (15-37) U/L ALT 54 (12-78) U/L Alkaline Phosphatase 67 (46-116) U/L Total Protein 7.7 (6.4-8.2) g/dL Albumin 3.9 (3.4-5.0) g/dL Globulin 3.8 (2.2-4.2) g/dL Albumin/Globulin Ratio 1.0 (0.8-2.0) COVID-19 (JOSE A) 03/04/20 03/04/20 03/04/20 Range/Units 11:52 14:06 19:57 WBC (4.0-11.0) K/uL RBC (3.80-5.80) M/uL Hgb (11.5-16.5) g/dL Hct (37.0-47.0) % MCV (76-96) fL MCH (27.0-32.0) pg MCHC (31.0-35.0) g/dL RDW (11.0-16.0) % Plt Count (150-500) K/uL MPV (6.0-10.0) fL Neut % (Auto) (45.0-70.0) % Lymph % (Auto) (20.0-40.0) % [place] % (Auto) (3.0-10.0) % Eos % (Auto) (1.0-5.0) % Baso % (Auto) (0.0-0.5) % Neut # (Auto) (2.00-7.50) K/uL Lymph # (Auto) (1.50-4.00) K/uL [place] # (Auto) (0.20-0.80) K/uL Eos # (Auto) (0.04-0.40) K/uL Baso # (Auto) (0.02-0.10) K/uL Sodium (136-145) mmol/L Potassium (3.5-5.1) mmol/L Chloride (98-107) mmol/L Carbon Dioxide (21.0-32.0) mmol/L Anion Gap (5.0-15.0) mmol/L BUN (8-26) mg/dL Creatinine (0.55-1.02) mg/dL Est Cr Clr Drug Dosing mL/min Estimated GFR (MDRD) (>60) MLS/MIN BUN/Creatinine Ratio (6-25) Glucose (74-100) mg/dL POC Glucose 133 H 187 H (74-110) mg/dL Hemoglobin A1c (< 5.7) % Calcium (8.5-10.1) mg/dL Total Bilirubin (0.0-1.0) mg/dL AST (15-37) U/L ALT (12-78) U/L Alkaline Phosphatase (46-116) U/L Total Protein (6.4-8.2) g/dL Albumin (3.4-5.0) g/dL Globulin (2.2-4.2) g/dL Albumin/Globulin Ratio (0.8-2.0) COVID-19 (JOSE A) Negative 03/05/20 Range/Units 06:57 WBC (4.0-11.0) K/uL RBC (3.80-5.80) M/uL Hgb (11.5-16.5) g/dL Hct (37.0-47.0) % MCV (76-96) fL MCH (27.0-32.0) pg MCHC (31.0-35.0) g/dL RDW (11.0-16.0) % Plt Count (150-500) K/uL MPV (6.0-10.0) fL Neut % (Auto) (45.0-70.0) % Lymph % (Auto) (20.0-40.0) % [place] % (Auto) (3.0-10.0) % Eos % (Auto) (1.0-5.0) % Baso % (Auto) (0.0-0.5) % Neut # (Auto) (2.00-7.50) K/uL Lymph # (Auto) (1.50-4.00) K/uL [place] # (Auto) (0.20-0.80) K/uL Eos # (Auto) (0.04-0.40) K/uL Baso # (Auto) (0.02-0.10) K/uL Sodium (136-145) mmol/L Potassium (3.5-5.1) mmol/L Chloride (98-107) mmol/L Carbon Dioxide (21.0-32.0) mmol/L Anion Gap (5.0-15.0) mmol/L BUN (8-26) mg/dL Creatinine (0.55-1.02) mg/dL Est Cr Clr Drug Dosing mL/min Estimated GFR (MDRD) (>60) MLS/MIN BUN/Creatinine Ratio (6-25) Glucose (74-100) mg/dL POC Glucose 161 H (74-110) mg/dL Hemoglobin A1c (< 5.7) % Calcium (8.5-10.1) mg/dL Total Bilirubin (0.0-1.0) mg/dL AST (15-37) U/L ALT (12-78) U/L Alkaline Phosphatase (46-116) U/L Total Protein (6.4-8.2) g/dL Albumin (3.4-5.0) g/dL Globulin (2.2-4.2) g/dL Albumin/Globulin Ratio (0.8-2.0) COVID-19 (JOSE A) Med Orders - Current: Current Medications Hydrocodone Bitart/Acetaminophen ([place] 325-5 Mg) 2 tab PO Q4H PRN PRN Reason: Pain (moderate 4-6) Last Admin: 03/05/20 08:02 Dose: 2 tab Documented by: Aspirin (Halfprin) 81 mg PO DAILY [facility] Last Admin: 03/05/20 08:04 Dose: 81 mg Documented by: Dextrose/Water (Dextrose 50% In Water) 25 ml IVPUSH ASDIRECTED PRN PRN Reason: Hypoglycemia Enoxaparin Sodium (Lovenox) 40 mg SUBCUT DAILY [facility] Last Admin: 03/04/20 18:24 Dose: 40 mg Documented by: Sodium Chloride (Normal Saline) 1,000 mls @ 125 mls/hr IV ASDIRECTED [facility] Last Admin: 03/04/20 22:43 Dose: 125 mls/hr Documented by: Lisinopril (Prinivil) 10 mg PO DAILY [facility] (Rosuvastatin Calcium [Crestor] 10 Mg)Own Med 10 mg PO BEDTIME [facility] Trazodone HCl (Trazodone) 0 mg PO BEDTIME PRN PRN Reason: Insomnia Discontinued Medications Enoxaparin Sodium (Lovenox) Confirm Administered Dose 40 mg .ROUTE .STK-MED ONE Stop: 03/04/20 18:28 Last Admin: 03/04/20 20:15 Dose: Not Given Documented by: Hydromorphone HCl (Dilaudid) 1 mg IM ONETIME ONE Stop: 03/04/20 11:16 Last Admin: 03/04/20 11:23 Dose: 1 mg Documented by: (Rosuvastatin Calcium [Crestor] 10 Mg)Own Med 10 mg PO ONETIME ONE Stop: 03/04/20 22:16 Last Admin: 03/04/20 22:44 Dose: 10 mg Documented by: - Exam General: Alert, Oriented, Cooperative HEENT: Pupils Equal, Pupils Reactive, EOMI Neck: Supple Lungs: Clear to Auscultation, Normal Respiratory Effort Cardiovascular: Regular Rate, Regular Rhythm GI/Abdominal Exam: Normal Bowel Sounds, Soft, Non-Tender Back Exam: Normal Inspection Extremities: Joint Swelling Neurological: No New Focal Deficit Psy/Mental Status: Alert, Normal Affect, Normal Mood Sepsis Event Note - Evaluation Sepsis Screening Result: No Definite Risk - Focused Exam Vital Signs: Vital Signs Temp Pulse Resp BP Pulse Ox 03/05/20 08:00 36.9 C 80 16 187/54 H 97 03/05/20 04:00 36.4 C 66 16 130/68 98 03/05/20 00:00 36.1 C 62 16 143/74 H 97 03/04/20 21:02 36.3 C 66 16 136/74 100 03/04/20 20:56 36.3 C 69 16 144/47 H 99 - Problem List & Annotations (1) Pain in lower limb SNOMED Code(s): 42403518 Code(s): M79.606 - PAIN IN LEG, UNSPECIFIED Status: Acute Current Visit: Yes - Problem List Review Problem List Initiated/Reviewed/Updated: Yes - Assessment Assessment:: Juliette Barnhart Hospitalist CONSULTATION NOTE: eHospitalist was contacted by ANTONIO Lynch with request of consultation for admission support: Reason for consult: Frequent falls, hypoglycemia HPI: Patient is a 69-year-old female with past medical history insulin-dependent diabetes, CAD, HTN, HLD, chronic back pain who presented to the ED after having 3 falls in the last 12 hours. Patient reports that last night she had a mechanical fall in the kitchen when she slipped on wet hardwood floor. Says she fell on her right knee, did not hit her head, did not lose consciousness, did not have any chest pain or shortness of breath or dizziness prior to the fall. Since then, she says her right knee has been hurting and that she has not been able to bear weight on her right knee. Reports falling again this morning as she was trying to get out of bed despite using a walker, once again a couple minutes later which prompted her to come to the ED for evaluation. Denies any fevers or chills, chest pain, shortness of breath, headaches or dizziness, focal weakness, numbness or tingling in upper or lower extremities, abdominal or urinary symptoms. Says she has been eating and drinking okay. Reports taking Levemir 40 units in the morning, says she took it this morning but has not had a chance to eat. She also takes 15 units of lispro 3 times a day with meals. Her blood glucose upon arrival to the ED was 33 which is quickly corrected with orange juice. Says she has hypoglycemic symptoms and hypoglycemia but once a week. Denies any hypoglycemia last week. Home Medications: Reviewed Pertinent Medical History: HTN, HLD, insulin-dependent diabetes, CAD, chronic b ack pain Pertinent Social History: Half pack a day smoker, occasional EtOH use, denies drugs, lives alone, uses a walker. Exam (performed via interactive video with assistance of bedside nurse): General: Alert, cooperative, and in no acute distress HEENT: Oral mucosa pink and moist without erythema. Has dentures Lungs: CTA B CV: RRR, no murmurs Ext: Right knee slightly swollen, does not appear red or inflamed. No fluctuance or warmth per bedside nurse. Skin: Has bruising and right upper extremity Neuro: AAO x3, no focal deficits Labs unremarkable except WBC count of 11.7. Troponin negative. COVID-19 BCR negative. Imaging of right knee-report pending and I am unable to review the images but no fractures per report. Assessment and Plan: Patient is a 69-year-old female with pmh of IDDM, CAD, HTN, HLD, chronic back pain who is being admitted for observation, physical therapy after frequent falls at home as well as close blood glucose monitoring for hypoglycemia. -Monitor blood glucose every hour, corrected with dextrose IV if less than 70. -Hold off on restarting home insulin insulin blood glucoses stable. -Resume carb controlled diet -Check A1c, orthostatics -Resume Lisinopril tomorrow if BP stable, orthostatics neg. -Physical and Occupational Therapy clearance -Restart home antihypertensives, pain medications. -Follow-up right knee x-ray. -Recommend cutting back on opiates on discharge as patient is high risk for falls. -DVT Px: SCDs, lovenox [facility] you for [facility]. This service is available for further assistance as requested by your care team by calling [phone]. - Plan Plan:: PT daily; If pt remains in Observation until we will do in-patien MRI of her right knee otherwise pmd will order out patient MRI for future date. Pt followed by e-hospitalist. 03/05/20 - Patient to remain in observation. Will work with PT/OT for ADL and ambulation. Considering further imaging for knee injury. F/u imaging and in am. Discussed hydrocodone use and decreased frequency/use. Patient ok with decrease.
[2020-03-05] MEDS: Lisinopril 10 MG Tab PO SCH (11:22)
[2020-03-05] MEDS: Enoxaparin 40 MG/0.4 ML Syringe SUBCUT SCH (11:25)
--- NOTE | 2020-03-05 14:44 | CT ---
DATE OF SERVICE: 03/05/2020 CLINICAL DATA: Right knee injury Right knee CT: Multi slice axial acquisition was performed. Axial images and sagittal and coronal reformations are reviewed. No priors. Minimal osteoarthritic changes. There is a moderate size joint effusion. There is diffuse osteopenia. No acute fracture or dislocation. No focal lytic or blastic bone lesions. The soft tissues are unremarkable. MTDD
[2020-03-05] MEDS ORDERED: Enoxaparin 40 MG/0.4 ML Syringe SUBCUT SCH (18:00)
[2020-03-05] MEDS ORDERED: ROSUVASTATIN CALCIUM 10 MG PO SCH (20:00)
[2020-03-05] MEDS: Insulin Lispro 100 Unit/ML 3 ML KwikPen*PT OWN MED SUBCUT SCH (20:52)
[2020-03-06] MEDS: Acetaminophen/HYDROcodone 325-5 MG Tab PO PRN (07:30)
[2020-03-06] MEDS: ASPIRIN 81 MG PO SCH (07:37)
[2020-03-06] MEDS: Insulin Lispro 100 Unit/ML 3 ML KwikPen*PT OWN MED SUBCUT SCH ×2 (07:52→11:35)
[2020-03-06] MEDS ORDERED: Enoxaparin 40 MG/0.4 ML Syringe SUBCUT SCH (08:00)
[2020-03-06] MEDS ORDERED: INSULIN DETEMIR 28 UNIT SUBCUT SCH (08:45)
[2020-03-06] MEDS: Lisinopril 10 MG Tab PO SCH (08:45)
[2020-03-06] MEDS ORDERED: Lisinopril 10 MG Tab PO SCH (08:45)
--- NOTE | 2020-03-06 11:40 | PCM.DCSUM1 ---
Discharge Summary - Discharge Data Discharge Date: 03/06/20 Discharge Disposition: DC/Tfer to Other 70 Condition: Good - Referral to Home Health Primary Care Physician: PCP None - Discharge Diagnosis/Problem(s) (1) Pain in lower limb SNOMED Code(s): 58605438 ICD Code: M79.606 - PAIN IN LEG, UNSPECIFIED Status: Acute Current Visit: Yes - Patient Summary/Data Consults: Consultations 03/04/20 14:23 Consult to Physical Therapy [PT Evaluation and Treatment] [CONS] Routine Please Evaluate and Treat. PT Reason for Consult: Ambulation Pending Discharge: Yes Special Instructions: Pt fell and sprained right knee; she will need evaluation for safety for discharge home (lives alone) This query below is only for informational purposes and is not editable. Admission Diagnosis/Problem: Hypoglycemia associated with diabetes 03/04/20 17:07 Consult to Sales Communications Manager [CONS] Routine Comment: Physician Instructions: Quantity: - Discharge Plan *PRESCRIPTION DRUG MONITORING PROGRAM REVIEWED*: No *COPY OF PRESCRIPTION DRUG MONITORING REPORT IN PATIENT RICHARD: No Home Medications: Home Meds Hydrocodone/Acetaminophen [Hydrocodon-Acetaminophen 5-325] 1 - 2 each PO Q6HR PRN 01/24/15 [History] Rosuvastatin Calcium [Crestor] 10 mg PO BEDTIME 01/24/15 [History] traZODone 1 - 2 tab PO BEDTIME PRN 01/24/15 [History] Aspirin [Adult Low Dose Aspirin EC] 81 mg PO DAILY 03/04/20 [History] lisinopriL [Lisinopril] 10 mg PO DAILY 03/04/20 [History] Insulin Detemir [Levemir Flextouch] 28 unit SUBCUT DAILY 03/06/20 [History] Insulin Lispro [Humalog] 16 unit SQ WITHMEALSANDBED 03/06/20 [History] Patient Handouts: Acute Knee Pain, Adult Forms: ED Department Discharge Referrals: PCP,None [Primary Care Provider] - - Discharge Summary/Plan Comment DC Time >30 min.: No Discharge Summary/Plan Comment: Patient to be discharged to respite care. Continue PT/OT and MRI on . - Patient Data Vitals - Most Recent: Last Vital Signs Temp 36.6 C 03/06/20 08:00 Pulse 72 03/06/20 08:00 Resp 18 03/06/20 08:00 BP 177/62 H 03/06/20 08:45 Pulse Ox 98 03/06/20 08:00 Weight - Most Recent: 48.081 kg Lab Results - Last 24 hrs: Laboratory Results - last 24 hr 03/05/20 03/05/20 03/06/20 Range/Units 10:30 20:44 06:39 POC Glucose 200 H 233 H 205 H (74-110) mg/dL 03/06/20 Range/Units 10:29 POC Glucose 220 H (74-110) mg/dL Med Orders - Current: Current Medications Hydrocodone Bitart/Acetaminophen ([place] 325-5 Mg) 2 tab PO Q6H PRN PRN Reason: Pain (moderate 4-6) Last Admin: 03/06/20 07:30 Dose: 2 tab Documented by: Aspirin (Halfprin) 81 mg PO DAILY [facility] Last Admin: 03/06/20 07:37 Dose: 81 mg Documented by: Dextrose/Water (Dextrose 50% In Water) 25 ml IVPUSH ASDIRECTED PRN PRN Reason: Hypoglycemia Enoxaparin Sodium (Lovenox) 40 mg SUBCUT DAILY@1800 [facility] Last Admin: 03/05/20 17:41 Dose: 40 mg Documented by: Sodium Chloride (Normal Saline) 1,000 mls @ 125 mls/hr IV ASDIRECTED [facility] Last Admin: 03/04/20 22:43 Dose: 125 mls/hr Documented by: Insulin Human Lispro (Humalog) 0 unit SUBCUT QIDACANDBED [facility]; Protocol Last Admin: 03/06/20 11:35 Dose: 2 units Documented by: Lisinopril (Prinivil) 20 mg PO DAILY [facility] (Rosuvastatin Calcium [Crestor] 10 Mg)Own Med 10 mg PO BEDTIME [facility] Last Admin: 03/05/20 20:36 Dose: 10 mg Documented by: Non-Formulary Medication (Insulin Detemir [Levemir Flextouch]) 28 unit SUBCUT DAILY [facility] Last Admin: 03/06/20 08:55 Dose: 28 unit Documented by: Trazodone HCl (Trazodone) 0 mg PO BEDTIME PRN PRN Reason: Insomnia Last Admin: 03/05/20 21:54 Dose: 100 mg Documented by: Discontinued Medications Hydrocodone Bitart/Acetaminophen ([place] 325-5 Mg) 2 tab PO Q4H PRN PRN Reason: Pain (moderate 4-6) Last Admin: 03/05/20 08:02 Dose: 2 tab Documented by: Enoxaparin Sodium (Lovenox) 40 mg SUBCUT DAILY [facility] Last Admin: 03/05/20 11:25 Dose: Not Given Documented by: Enoxaparin Sodium (Lovenox) Confirm Administered Dose 40 mg .ROUTE .STK-MED ONE Stop: 03/04/20 18:28 Last Admin: 03/04/20 20:15 Dose: Not Given Documented by: Enoxaparin Sodium (Lovenox) 40 mg SUBCUT DAILY [facility] Hydromorphone HCl (Dilaudid) 1 mg IM ONETIME ONE Stop: 03/04/20 11:16 Last Admin: 03/04/20 11:23 Dose: 1 mg Documented by: Lisinopril (Prinivil) 10 mg PO DAILY [facility] Last Admin: 03/06/20 08:45 Dose: 20 mg Documented by: (Rosuvastatin Calcium [Crestor] 10 Mg)Own Med 10 mg PO ONETIME ONE Stop: 03/04/20 22:16 Last Admin: 03/04/20 22:44 Dose: 10 mg Documented by:
[2020-03-06 12:37] VITALS: BP 169/47; PULSE 71
[2020-03-07] MEDS ORDERED: Lisinopril 20 MG Tab PO SCH (08:00)
== END 2020-03-06 12:15 | disposition other institution (70) ==
LOC: LB.ED 09:44 → LB.MS 13:12
PROVIDERS: ADMIT Physician Assistant Surgical; ATTEND Physician Assistant Surgical
DX: E11.649 Type 2 diabetes mellitus with hypoglycemia without coma (principal); S83.91XA Sprain of unspecified site of right knee, initial encounter; E78.5 Hyperlipidemia, unspecified; G89.29 Other chronic pain; I10 Essential (primary) hypertension; R29.6 Repeated falls; M54.9 Dorsalgia, unspecified; I25.10 Atherosclerotic heart disease of native coronary artery without angina pectoris; F17.210 Nicotine dependence, cigarettes, uncomplicated; Z79.4 Long term (current) use of insulin; Z88.5 Allergy status to narcotic agent; Z20.828 Contact with and (suspected) exposure to other viral communicable diseases; W01.0XXA Fall on same level from slipping, tripping and stumbling without subsequent striking against object, initial encounter; Y92.000 Kitchen of unspecified non-institutional (private) residence as the place of occurrence of the external cause
CPT/HCPCS: 36415; 73560; 73700; 80053; 82962; 83036; 85025; 96360; 96361; 96372; 97110; 97161; 97530; 99217; 99219; 99235; 99284; A0425; A0429; A9270; G0378; J1170; J1650; J1815; J7030; U0002

== ENCOUNTER 2020-03-06 09:31 | Inpatient (IN) | payer SELFPAY ==
[2020-03-06] MEDS ORDERED: [UNRECOGNIZED DRUG - OTHER] PO PRN (13:00)
[2020-03-06] MEDS ORDERED: ACETAMINOPHEN PO PRN (13:00)
[2020-03-06] MEDS ORDERED: HYDROCODONE PO PRN (13:00)
[2020-03-06] MEDS: ACETAMINOPHEN PO PRN ×2 (13:30→19:38)
[2020-03-06] MEDS: [UNRECOGNIZED DRUG - OTHER] PO PRN ×2 (13:30→19:38)
[2020-03-06] MEDS: HYDROCODONE PO PRN ×2 (13:30→19:38)
--- NOTE | 2020-03-06 17:03 | PCM.HP.2 ---
H&P History of Present Illness - General Date of Service: 03/06/20 Admit Problem/Dx: Admission Diagnosis/Problem Admission Diagnosis/Problem Weakness Source of Information: Patient, Old Records, RN Notes Reviewed History Limitations: Reports: No Limitations - History of Present Illness Initial Comments - Free Text/Narative: This is a 69yo F who fell on her right knee and came into the ER. She was in extreme pain and unable to manage at home by herself. She was place in observation but continues to have difficulty with ambulation and self care. Location: Reports: Lower Extremity, Right Right Knee Pain Score (Numeric/FACES): 6 - Related Data Allergies/Adverse Reactions: Allergies Allergy/AdvReac Type Severity Reaction Status Date / Time meperidine [From Demerol] AdvReac Nausea and Verified 05/17/16 09:42 Vomiting Home Medications: Home Meds Hydrocodone/Acetaminophen [Hydrocodon-Acetaminophen 5-325] 1 - 2 each PO Q6HR PRN 01/24/15 [History] Rosuvastatin Calcium [Crestor] 10 mg PO BEDTIME 01/24/15 [History] traZODone 1 - 2 tab PO BEDTIME PRN 01/24/15 [History] Aspirin [Adult Low Dose Aspirin EC] 81 mg PO DAILY 03/04/20 [History] lisinopriL [Lisinopril] 20 mg PO DAILY 03/04/20 [History] Insulin Detemir [Levemir Flextouch] 28 unit SUBCUT DAILY 03/06/20 [History] Insulin Lispro [Humalog] 16 unit SQ TIDMEALS 03/06/20 [History] Past Medical History HEENT History: Reports: Impaired Vision Cardiovascular History: Reports: Other (See Below) Other Cardiovascular History: right carotid graft. 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 - Infectious Disease History Infectious Disease History: Reports: Chicken Pox, Measles, Mumps - Past Surgical History Cardiovascular Surgical History: Reports: Other (See Below) Social & Family History - Family History Family Medical History: Noncontributory Cardiac: Reports: [place] GI: Reports: Other (See Below) Other GI Family History: chrohns disease : Reports: Other (See Below) Other Family History: cancer Musculoskeletal: Reports: Arthritis Neurological: Reports: MS Endocrine/Metabolic: Reports: Diabetes, type II Oncologic: Reports: Bladder, Breast - Caffeine Use Caffeine Use: Reports: Coffee H&P Review of Systems - Review of Systems: Review Of Systems: Comprehensive ROS is negative, except as noted in HPI. Exam - Exam Exam: See Below - Vital Signs Vital Signs: Last Vital Signs Temp 36.6 C 03/06/20 12:39 Pulse 71 03/06/20 12:39 Resp 18 03/06/20 12:39 BP 169/47 H 03/06/20 12:39 Pulse Ox 98 03/06/20 12:39 - Exam General: Alert, Oriented HEENT: PERRLA, Conjunctiva Clear, EACs Clear Neck: Supple, Trachea Midline Lungs: Clear to Auscultation, Normal Respiratory Effort Cardiovascular: Regular Rate, Regular Rhythm GI/Abdominal Exam: Normal Bowel Sounds Extremities: Joint Swelling, Leg Pain Sepsis Event Note - Evaluation Sepsis Screening Result: No Definite Risk - Focused Exam Vital Signs: Vital Signs Temp Pulse Resp BP Pulse Ox 03/06/20 12:39 36.6 C 71 18 169/47 H 98 - Problem List (1) Right knee injury SNOMED Code(s): 588431478 ICD Code: S89.91XA - UNSPECIFIED INJURY OF RIGHT LOWER LEG, INITIAL ENCOUNTER Status: Acute Current Visit: Yes Problem List Initiated/Reviewed/Updated: Yes Orders Last 24hrs: Active Orders 24 hr Category Date Time Status Admission Status [Patient Status] [ADT] Routine ADT 03/06/20 11:50 Active Aspirin [Adult Low Dose Aspirin EC] Med 03/07/20 08:00 Active 81 mg PO DAILY Hydrocodone/Acetaminophen [Hydrocodon-Acetaminophen 5- Med 03/06/20 14:33 Active 325] 1 each PO Q6HR PRN Insulin Detemir [Levemir Flextouch] Med 03/07/20 08:00 Active 28 unit SUBCUT DAILY Insulin Lispro [HumaLOG] Med 03/06/20 18:00 Active 16 unit SUBCUT TIDMEALS Rosuvastatin Calcium [Crestor] Med 03/06/20 20:00 Active 10 mg PO BEDTIME lisinopriL [Prinivil] Med 03/07/20 08:00 Active 20 mg PO DAILY traZODone [traZODone] Med 03/06/20 14:02 Active 1 - 2 tab PO BEDTIME PRN Medication Orders Insulin Human Lispro (Humalog) 16 unit SUBCUT TIDMEALS [facility]; Protocol Lisinopril (Prinivil) 20 mg PO DAILY [facility] Non-Formulary Medication (Aspirin [Adult Low Dose Aspirin Ec]) 81 mg PO DAILY [facility] Non-Formulary Medication (Insulin Detemir [Levemir Flextouch]) 28 unit SUBCUT DAILY [facility] Non-Formulary Medication (Rosuvastatin Calcium [Crestor]) 10 mg PO BEDTIME [facility] Trazodone 50mg (Tablets) 1 - 2 tab PO BEDTIME PRN PRN Reason: Insomnia Non-Formulary Medication (Hydrocodone/Acetaminophen [Hydrocodon-Acetaminophen 5- 325]) 1 each PO Q6HR PRN PRN Reason: Pain Assessment/Plan Comment:: Patient placed in respite care. She will obtain an MRI of the right knee on .
[2020-03-06] MEDS ORDERED: Insulin Lispro 100 Unit/ML 3 ML KwikPen SUBCUT SCH (18:00)
[2020-03-06] MEDS: Insulin Lispro 100 Unit/ML 3 ML KwikPen SUBCUT SCH (18:56)
[2020-03-06] MEDS: Non-Formulary Medication 1 Each (Rosuvastatin Calcium [Crestor] 10 MG) PO SCH (19:38)
[2020-03-06] MEDS: TRAZODONE 50MG TABLETS PO PRN (19:43)
[2020-03-07] MEDS: Insulin Lispro 100 Unit/ML 3 ML KwikPen SUBCUT SCH ×2 (07:53→11:49)
[2020-03-07] MEDS: INSULIN DETEMIR 28 UNIT SUBCUT SCH (07:55)
[2020-03-07] MEDS: Lisinopril 20 MG Tab PO SCH (07:57)
[2020-03-07] MEDS ORDERED: Non-Formulary Medication 1 Each (Lisinopril [Lisinopril] 20 MG) PO SCH (08:00)
[2020-03-07] MEDS: [UNRECOGNIZED DRUG - OTHER] PO PRN ×3 (08:03→20:31)
[2020-03-07] MEDS ORDERED: Acetaminophen/HYDROcodone 325-5 MG Tab ONE (08:03)
[2020-03-07] MEDS: ACETAMINOPHEN PO PRN ×3 (08:03→20:31)
[2020-03-07] MEDS: HYDROCODONE PO PRN ×3 (08:03→20:31)
[2020-03-07] MEDS ORDERED: LORazepam 1 MG Tab PO SCH (09:30)
[2020-03-07] MEDS: TRAZODONE 50MG TABLETS PO PRN (20:32)
[2020-03-07] MEDS: Non-Formulary Medication 1 Each (Rosuvastatin Calcium [Crestor] 10 MG) PO SCH (20:32)
[2020-03-08] MEDS: ACETAMINOPHEN PO PRN (03:14)
[2020-03-08] MEDS: [UNRECOGNIZED DRUG - OTHER] PO PRN (03:14)
[2020-03-08] MEDS: HYDROCODONE PO PRN (03:14)
[2020-03-08] MEDS: Lisinopril 20 MG Tab PO SCH (07:58)
[2020-03-08] MEDS: INSULIN DETEMIR 28 UNIT SUBCUT SCH (08:23)
[2020-03-08] MEDS: Insulin Lispro 100 Unit/ML 3 ML KwikPen SUBCUT SCH ×3 (08:23→17:03)
[2020-03-08] MEDS ORDERED: Acetaminophen/HYDROcodone 325-5 MG Tab PO PRN (09:23)
[2020-03-08] MEDS: Acetaminophen/HYDROcodone 325-5 MG Tab PO PRN ×4 (09:30→19:34)
[2020-03-08] MEDS: Non-Formulary Medication 1 Each (Rosuvastatin Calcium [Crestor] 10 MG) PO SCH (19:35)
[2020-03-08] MEDS: TRAZODONE 50MG TABLETS PO PRN (19:36)
[2020-03-09] MEDS: Acetaminophen/HYDROcodone 325-5 MG Tab PO PRN ×3 (07:42→20:30)
[2020-03-09] MEDS: Lisinopril 20 MG Tab PO SCH (07:42)
[2020-03-09] MEDS: Insulin Lispro 100 Unit/ML 3 ML KwikPen SUBCUT SCH ×3 (07:44→17:05)
[2020-03-09] MEDS: INSULIN DETEMIR 28 UNIT SUBCUT SCH (07:45)
[2020-03-09] MEDS: Non-Formulary Medication 1 Each (Rosuvastatin Calcium [Crestor] 10 MG) PO SCH (20:31)
[2020-03-09] MEDS: TRAZODONE 50MG TABLETS PO PRN (20:32)
[2020-03-10] MEDS: Lisinopril 20 MG Tab PO SCH (07:32)
[2020-03-10] MEDS: Acetaminophen/HYDROcodone 325-5 MG Tab PO PRN ×3 (07:33→20:15)
[2020-03-10] MEDS: Insulin Lispro 100 Unit/ML 3 ML KwikPen SUBCUT SCH ×3 (07:33→17:01)
[2020-03-10] MEDS: INSULIN DETEMIR 28 UNIT SUBCUT SCH (07:34)
[2020-03-10] MEDS: TRAZODONE 50MG TABLETS PO PRN (20:16)
[2020-03-10] MEDS: Non-Formulary Medication 1 Each (Rosuvastatin Calcium [Crestor] 10 MG) PO SCH (20:16)
[2020-03-11] MEDS: Acetaminophen/HYDROcodone 325-5 MG Tab PO PRN ×3 (06:49→19:37)
[2020-03-11] MEDS: Insulin Lispro 100 Unit/ML 3 ML KwikPen SUBCUT SCH ×3 (08:12→17:00)
[2020-03-11] MEDS: INSULIN DETEMIR 28 UNIT SUBCUT SCH (08:13)
[2020-03-11] MEDS: Lisinopril 20 MG Tab PO SCH (08:14)
--- NOTE | 2020-03-11 13:38 | PCM.PN ---
- General Info Date of Service: 03/11/20 Subjective Update: This is a 69yo F with a recent right tibial fracture here in respite care for rehabilitation and cares. She has had difficulty with ambulation and requires full assistance for transfers and care. Her pain is under control at this time. Functional Status: Reports: Pain Controlled, Tolerating Diet - Review of Systems General: Reports: No Symptoms HEENT: Reports: No Symptoms Pulmonary: Reports: No Symptoms Cardiovascular: Reports: No Symptoms Gastrointestinal: Reports: No Symptoms Genitourinary: Reports: No Symptoms Musculoskeletal: Reports: Leg Pain Neurological: Reports: No Symptoms Psychiatric: Reports: No Symptoms - Patient Data Vitals - Most Recent: Last Vital Signs Temp 36.9 C 03/11/20 08:00 Pulse 66 03/11/20 08:00 Resp 18 03/11/20 08:00 BP 173/47 H 03/11/20 08:14 Pulse Ox 100 03/11/20 08:00 Weight - Most Recent: 48.081 kg Lab Results Last 24 Hours: Laboratory Results - last 24 hr 03/10/20 03/11/20 03/11/20 Range/Units 15:35 07:11 11:03 POC Glucose 166 H 214 H 154 H (74-110) mg/dL Med Orders - Current: Current Medications Hydrocodone Bitart/Acetaminophen ([place] 325-5 Mg) 1 - 2 tab PO Q6H PRN PRN Reason: Pain Last Admin: 03/11/20 13:09 Dose: 2 tab Documented by: Insulin Human Lispro (Humalog) 0 unit SUBCUT TIDMEALS [facility]; Protocol Last Admin: 03/11/20 12:04 Dose: 3 units Documented by: Lisinopril (Prinivil) 20 mg PO DAILY [facility] Last Admin: 03/11/20 08:14 Dose: 20 mg Documented by: Non-Formulary Medication (Aspirin [Adult Low Dose Aspirin Ec]) 81 mg PO DAILY [facility] Last Admin: 03/11/20 08:11 Dose: 81 mg Documented by: Non-Formulary Medication (Insulin Detemir [Levemir Flextouch]) 28 unit SUBCUT DAILY [facility] Last Admin: 03/11/20 08:13 Dose: 28 unit Documented by: Non-Formulary Medication (Rosuvastatin Calcium [Crestor]) 10 mg PO BEDTIME [facility] Last Admin: 03/10/20 20:16 Dose: 10 mg Documented by: Trazodone 50mg (Tablets) 1 - 2 tab PO BEDTIME PRN PRN Reason: Insomnia Last Admin: 03/10/20 20:16 Dose: 2 tab Documented by: Discontinued Medications Hydrocodone Bitart/Acetaminophen ([place] 325-5 Mg) Confirm Administered Dose 1 tab .ROUTE .STK-MED ONE Stop: 03/07/20 08:04 Last Admin: 03/07/20 17:44 Dose: Not Given Documented by: Hydrocodone Bitart/Acetaminophen ([place] 325-5 Mg) 1 - 2 tab PO Q6H PRN PRN Reason: Pain Insulin Human Lispro (Humalog) 16 unit SUBCUT TIDMEALS [facility]; Protocol Lorazepam (Ativan) 1 mg PO ASDIRECTED [facility] Stop: 03/07/20 23:59 Last Admin: 03/07/20 09:29 Dose: 1 mg Documented by: Non-Formulary Medication (Hydrocodone/Acetaminophen [Hydrocodon-Acetaminophen 5- 325]) 1 - 2 each PO Q6HR PRN PRN Reason: Pain Non-Formulary Medication (Hydrocodone/Acetaminophen [Hydrocodon-Acetaminophen 5- 325]) 1 each PO Q6HR PRN PRN Reason: Pain Last Admin: 03/08/20 03:14 Dose: 1 each Documented by: - Exam General: Alert, Oriented, Cooperative HEENT: Pupils Equal, Pupils Reactive, EOMI Neck: Supple Lungs: Clear to Auscultation, Normal Respiratory Effort Cardiovascular: Regular Rate, Regular Rhythm Back Exam: Normal Inspection Extremities: Leg Pain Sepsis Event Note - Evaluation Sepsis Screening Result: No Definite Risk - Focused Exam Vital Signs: Vital Signs Temp Pulse Resp BP BP Pulse Ox 03/11/20 08:14 173/47 H 03/11/20 08:00 36.9 C 66 18 173/47 H 100 - Problem List & Annotations (1) Right knee injury SNOMED Code(s): 287367979 Code(s): S89.91XA - UNSPECIFIED INJURY OF RIGHT LOWER LEG, INITIAL ENCOUNTER Status: Acute Current Visit: Yes - Problem List Review Problem List Initiated/Reviewed/Updated: Yes - Plan Plan:: Patient placed in respite care. She will obtain an MRI of the right knee on . 03/11/20 Face to face for right tibial fracture. Patient will need a 16w x 17d manual Wheelchair with elevating leg rests, full length arm rests and a basic cushion.
[2020-03-11] MEDS ORDERED: Trolamine Salicylate/Aloe Vera 10% Crm 85 GM Tube TOP PRN (20:19)
[2020-03-11] MEDS: Non-Formulary Medication 1 Each (Rosuvastatin Calcium [Crestor] 10 MG) PO SCH (21:03)
[2020-03-11] MEDS: TRAZODONE 50MG TABLETS PO PRN (21:04)
[2020-03-12] MEDS: Lisinopril 20 MG Tab PO SCH (07:26)
[2020-03-12] MEDS: Insulin Lispro 100 Unit/ML 3 ML KwikPen SUBCUT SCH ×3 (07:27→17:06)
[2020-03-12] MEDS: Acetaminophen/HYDROcodone 325-5 MG Tab PO PRN ×3 (07:29→19:36)
[2020-03-12] MEDS: INSULIN DETEMIR 28 UNIT SUBCUT SCH (07:30)
[2020-03-12] MEDS ORDERED: Insulin Lispro 100 Unit/ML 3 ML KwikPen SUBCUT SCH (08:00)
[2020-03-12] MEDS: Non-Formulary Medication 1 Each (Rosuvastatin Calcium [Crestor] 10 MG) PO SCH (19:36)
[2020-03-12] MEDS: TRAZODONE 50MG TABLETS PO PRN (21:43)
[2020-03-13] MEDS: Acetaminophen/HYDROcodone 325-5 MG Tab PO PRN ×3 (07:00→20:49)
[2020-03-13] MEDS: INSULIN DETEMIR 28 UNIT SUBCUT SCH (08:50)
[2020-03-13] MEDS: Lisinopril 20 MG Tab PO SCH (08:50)
[2020-03-13] MEDS: Insulin Lispro 100 Unit/ML 3 ML KwikPen SUBCUT SCH ×3 (08:50→17:12)
[2020-03-13] MEDS: Non-Formulary Medication 1 Each (Rosuvastatin Calcium [Crestor] 10 MG) PO SCH (20:47)
[2020-03-13] MEDS: TRAZODONE 50MG TABLETS PO PRN (20:48)
[2020-03-14] MEDS: Acetaminophen/HYDROcodone 325-5 MG Tab PO PRN ×3 (06:43→19:42)
[2020-03-14] MEDS: Lisinopril 20 MG Tab PO SCH (08:12)
[2020-03-14] MEDS: INSULIN DETEMIR 28 UNIT SUBCUT SCH (08:20)
[2020-03-14] MEDS: Insulin Lispro 100 Unit/ML 3 ML KwikPen SUBCUT SCH ×3 (08:23→18:28)
[2020-03-14] MEDS: HYDROCODONE PO PRN (19:41)
[2020-03-14] MEDS: [UNRECOGNIZED DRUG - OTHER] PO PRN (19:41)
[2020-03-14] MEDS: ACETAMINOPHEN PO PRN (19:41)
[2020-03-14] MEDS: Non-Formulary Medication 1 Each (Rosuvastatin Calcium [Crestor] 10 MG) PO SCH (19:44)
[2020-03-14] MEDS: TRAZODONE 50MG TABLETS PO PRN (21:38)
[2020-03-15] MEDS: Lisinopril 20 MG Tab PO SCH (08:13)
[2020-03-15] MEDS: Acetaminophen/HYDROcodone 325-5 MG Tab PO PRN ×4 (08:13→20:54)
[2020-03-15] MEDS: Insulin Lispro 100 Unit/ML 3 ML KwikPen SUBCUT SCH ×3 (08:16→18:00)
[2020-03-15] MEDS: INSULIN DETEMIR 28 UNIT SUBCUT SCH (08:16)
[2020-03-15] MEDS: Non-Formulary Medication 1 Each (Rosuvastatin Calcium [Crestor] 10 MG) PO SCH (20:49)
[2020-03-15] MEDS: TRAZODONE 50MG TABLETS PO PRN (20:52)
[2020-03-16] MEDS: Acetaminophen/HYDROcodone 325-5 MG Tab PO PRN ×3 (07:05→20:05)
[2020-03-16] MEDS: INSULIN DETEMIR 28 UNIT SUBCUT SCH (08:06)
[2020-03-16] MEDS: Insulin Lispro 100 Unit/ML 3 ML KwikPen SUBCUT SCH ×3 (08:06→17:32)
[2020-03-16] MEDS: Lisinopril 20 MG Tab PO SCH (08:12)
[2020-03-16] MEDS: Non-Formulary Medication 1 Each (Rosuvastatin Calcium [Crestor] 10 MG) PO SCH (20:05)
[2020-03-16] MEDS: TRAZODONE 50MG TABLETS PO PRN (20:05)
[2020-03-17] MEDS: Acetaminophen/HYDROcodone 325-5 MG Tab PO PRN ×3 (07:07→19:32)
[2020-03-17] MEDS: Lisinopril 20 MG Tab PO SCH (08:02)
[2020-03-17] MEDS: Insulin Lispro 100 Unit/ML 3 ML KwikPen SUBCUT SCH ×3 (08:03→18:11)
[2020-03-17] MEDS: INSULIN DETEMIR 28 UNIT SUBCUT SCH (08:04)
[2020-03-17 08:05] VITALS: BP 188/62
[2020-03-17 09:20] VITALS: PULSE 62
[2020-03-17] MEDS: Non-Formulary Medication 1 Each (Rosuvastatin Calcium [Crestor] 10 MG) PO SCH (19:31)
--- NOTE | 2020-03-19 13:23 | PCM.DCSUM1 ---
Discharge Summary - Discharge Data Discharge Date: 03/17/20 Discharge Disposition: Home, Self-Care 01 Condition: Stable - Referral to Home Health Primary Care Physician: Drake Yu MD - Discharge Diagnosis/Problem(s) (1) Right knee injury SNOMED Code(s): 897835968 ICD Code: S89.91XA - UNSPECIFIED INJURY OF RIGHT LOWER LEG, INITIAL ENCOUNTER Status: Acute Priority: High - Patient Instructions Diet: Usual Diet as Tolerated Activity: As Tolerated - Discharge Plan Home Medications: Home Meds Hydrocodone/Acetaminophen [Hydrocodon-Acetaminophen 5-325] 1 - 2 each PO Q6HR PRN 01/24/15 [History] Rosuvastatin Calcium [Crestor] 10 mg PO BEDTIME 01/24/15 [History] traZODone 1 - 2 tab PO BEDTIME PRN 01/24/15 [History] Aspirin [Adult Low Dose Aspirin EC] 81 mg PO DAILY 03/04/20 [History] lisinopriL [Lisinopril] 20 mg PO DAILY 03/04/20 [History] Insulin Detemir [Levemir Flextouch] 28 unit SUBCUT DAILY 03/06/20 [History] Insulin Lispro [Humalog] 16 unit SQ TIDMEALS 03/06/20 [History] Patient Handouts: Fall Prevention in the Home, Adult, [id number], Weakness, [id number], Tibial Fracture, Adult, [id number], Diabetes Mellitus and Nutrition, Adult - Discharge Summary/Plan Comment DC Time >30 min.: No Discharge Summary/Plan Comment: Patient discharged home with support from Daughter who picked her up. Patient counseled on close monitoring and f/u as directed. - Patient Data Vitals - Most Recent: Last Vital Signs Temp 36.6 C 03/17/20 08:00 Pulse 62 03/17/20 08:00 Resp 18 03/17/20 08:00 BP 188/62 H 03/17/20 08:02 Pulse Ox 100 03/17/20 08:00 Weight - Most Recent: 48.081 kg Med Orders - Current: Current Medications Discontinued Medications Hydrocodone Bitart/Acetaminophen ([place] 325-5 Mg) Confirm Administered Dose 1 tab .ROUTE .STK-MED ONE Stop: 03/07/20 08:04 Last Admin: 03/07/20 17:44 Dose: Not Given Documented by: Hydrocodone Bitart/Acetaminophen ([place] 325-5 Mg) 1 - 2 tab PO Q6H PRN PRN Reason: Pain Hydrocodone Bitart/Acetaminophen ([place] 325-5 Mg) 1 - 2 tab PO Q6H PRN PRN Reason: Pain Last Admin: 03/17/20 19:32 Dose: 2 tab Documented by: Insulin Human Lispro (Humalog) 16 unit SUBCUT TIDMEALS [facility]; Protocol Insulin Human Lispro (Humalog) 0 unit SUBCUT TIDMEALS [facility]; Protocol Last Admin: 03/11/20 17:00 Dose: 3 units Documented by: Insulin Human Lispro (Humalog) 10 unit SUBCUT TIDMEALS [facility]; Protocol Insulin Human Lispro (Humalog) 10 unit SUBCUT TIDMEALS [facility] Last Admin: 03/17/20 18:11 Dose: Not Given Documented by: Lisinopril (Prinivil) 20 mg PO DAILY [facility] Last Admin: 03/17/20 08:02 Dose: 20 mg Documented by: Lorazepam (Ativan) 1 mg PO ASDIRECTED [facility] Stop: 03/07/20 23:59 Last Admin: 03/07/20 09:29 Dose: 1 mg Documented by: Non-Formulary Medication (Aspirin [Adult Low Dose Aspirin Ec]) 81 mg PO DAILY [facility] Last Admin: 03/17/20 08:03 Dose: 81 mg Documented by: Non-Formulary Medication (Insulin Detemir [Levemir Flextouch]) 28 unit SUBCUT DAILY [facility] Last Admin: 03/17/20 08:04 Dose: 28 unit Documented by: Non-Formulary Medication (Rosuvastatin Calcium [Crestor]) 10 mg PO BEDTIME [facility] Last Admin: 03/17/20 19:31 Dose: 10 mg Documented by: Trazodone 50mg (Tablets) 1 - 2 tab PO BEDTIME PRN PRN Reason: Insomnia Last Admin: 03/16/20 20:05 Dose: 2 tab Documented by: Non-Formulary Medication (Hydrocodone/Acetaminophen [Hydrocodon-Acetaminophen 5- 325]) 1 - 2 each PO Q6HR PRN PRN Reason: Pain Non-Formulary Medication (Hydrocodone/Acetaminophen [Hydrocodon-Acetaminophen 5- 325]) 1 each PO Q6HR PRN PRN Reason: Pain Last Admin: 03/14/20 19:41 Dose: 1 each Documented by: Trolamine Salicylate (Aspercreme 10%) 0 gm TOP QID PRN PRN Reason: Pain Last Admin: 03/11/20 20:20 Dose: 1 applic Documented by:
== END 2020-03-17 19:50 | disposition home or self-care (01) | DRG 951 ==
LOC: LB.MS 11:50
PROVIDERS: ADMIT Family Medicine; ATTEND Family Medicine
DX: Z51.5 Encounter for palliative care (principal); Z75.5 Holiday relief care; S89.91XD Unspecified injury of right lower leg, subsequent encounter; Z79.82 Long term (current) use of aspirin; Z79.4 Long term (current) use of insulin; Z79.899 Other long term (current) drug therapy; Z88.5 Allergy status to narcotic agent; H54.7 Unspecified visual loss; E11.9 Type 2 diabetes mellitus without complications; G89.29 Other chronic pain; M54.9 Dorsalgia, unspecified; R32 Unspecified urinary incontinence; Z87.891 Personal history of nicotine dependence
CPT/HCPCS: 82962; A9270-GY; J1815

== ENCOUNTER 2021-01-17 12:08 | Emergency (ER) | payer MEDICARE, OTHER ==
[2021-01-17] MEDS: HYDROmorphone 4 MG/ML Syringe SUBCUT ONE (12:13)
[2021-01-17] MEDS: HYDROmorphone 2 MG/ML SDV ONE (12:58)
[2021-01-17 13:03] VITALS: BP 191/67; PULSE 104
[2021-01-17] MEDS: Acetaminophen/HYDROcodone 325-5 MG Tab PO ONE (13:18)
--- NOTE | 2021-01-17 14:05 | EDM.PDOC ---
ED HPI GENERAL MEDICAL PROBLEM - General Chief Complaint: General Stated Complaint: WRIST INJURY Time Seen by Provider: 01/17/21 12:08 - History of Present Illness INITIAL COMMENTS - FREE TEXT/NARRATIVE: Pt fell last nite in her home, hitting her head on the wall, and injuring her left wrist. She didn't have a ride to come in sooner. She is not concerned about her head in jury, but states her left wrist is very painful. Onset: Sudden Left Wrist Pain Score (Numeric/FACES): 9 - Related Data Allergies Allergy/AdvReac Type Severity Reaction Status Date / Time meperidine [From Demerol] AdvReac Nausea and Verified 01/17/21 13:55 Vomiting Home Meds: Home Meds Hydrocodone/Acetaminophen [HYDROcodone-Acetaminophen 5-325 MG] 1 - 2 each PO Q6HR PRN 01/24/15 [History] Rosuvastatin Calcium [Crestor] 10 mg PO BEDTIME 01/24/15 [History] traZODone 1 - 2 tab PO BEDTIME PRN 01/24/15 [History] Aspirin [Adult Low Dose Aspirin EC] 81 mg PO DAILY 03/04/20 [History] lisinopriL [Lisinopril] 20 mg PO DAILY 03/04/20 [History] Insulin Detemir [Levemir Flextouch] 28 unit SUBCUT DAILY 03/06/20 [History] Insulin Lispro [Humalog] 16 unit SQ TIDMEALS 03/06/20 [History] Past Medical History HEENT History: Reports: Impaired Vision Cardiovascular History: Reports: Other (See Below) Other 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 - Infectious Disease History Infectious Disease History: Reports: Chicken Pox, Measles, Mumps - Past Surgical History Cardiovascular Surgical History: Reports: Other (See Below) Social & Family History - Family History Family Medical History: No Pertinent Family History Cardiac: Reports: [place] GI: Reports: Other (See Below) Other GI Family History: chrohns disease : Reports: Other (See Below) Other Family History: cancer Musculoskeletal: Reports: Arthritis Neurological: Reports: MS Endocrine/Metabolic: Reports: Diabetes, type II Oncologic: Reports: Bladder, Breast - Caffeine Use Caffeine Use: Reports: Coffee ED ROS GENERAL - Review of Systems Review Of Systems: Comprehensive ROS is negative, except as noted in HPI. HEENT: Reports: Other (Bruise to left side of forehead.) Musculoskeletal: Reports: Other (Left wrist injury.) ED EXAM, GENERAL - Physical Exam Exam: See Below Eye Exam: Bilateral Eye: EOMI, PERRL Head: Other (She has a bruise on the left side of her forehead caden 3 cm in size. Minimal swelling.) Extremities: Other (Her left wrist is moderately swollen and slightly red. Skin is intact. She has significant pain with any movement or touch of the area.) Course - Vital Signs Last Recorded V/S: Last Vital Signs Temp 98 F 01/17/21 11:55 Pulse 104 H 01/17/21 11:55 Resp 18 01/17/21 11:55 BP 191/67 H 01/17/21 11:55 Pulse Ox 100 01/17/21 11:55 - Orders/Labs/Meds Orders: Active Orders 24 hr Category Date Time Status Wrist Comp Min 3V Lt [CR] Stat Exams 01/17/21 12:12 Taken Meds: Medications Discontinued Medications Generic Name Dose Route Start Last Admin Trade Name Macey PRN Reason Stop Dose Admin Hydrocodone Bitart/Acetaminophen Confirm 01/17/21 13:18 Acetaminophen/Hydrocodone 325-5 Mg Tab Administered 01/17/21 13:19 Dose 1 tab .ROUTE .STK-MED ONE Hydromorphone HCl Confirm 01/17/21 12:20 01/17/21 12:58 Hydromorphone 2 Mg/Ml Sdv Administered 01/17/21 12:21 Not Given Dose 2 mg .ROUTE .STK-MED ONE Hydromorphone HCl 1 mg 01/17/21 12:15 01/17/21 12:13 Hydromorphone 4 Mg/Ml Syringe SUBCUT 01/17/21 12:16 1 mg ONETIME ONE Administration - Radiology Interpretation Free Text/Narrative:: Wrist x-ray shows a distal Radial fracture with some displacement. - Re-Assessments/Exams Free Text/Narrative Re-Assessment/Exam: 01/17/21 14:05 Dilaudid 1mg Subq was given initially. I did consult Dr Shah, Ortho at [facility]. He wants to see her in clinic Wednesday. A gutter splint was applied, and a sling was given. Sabine was given 1 tab here and a script. 01/17/21 14:07 Departure - Departure Time of Disposition: 13:40 Disposition: Home, Self-Care 01 Condition: Good Clinical Impression: Distal radial fracture Qualifiers: Encounter type: initial encounter Fracture type: closed Fracture morphology: unspecified fracture morphology Laterality: left Qualified Code(s): S52.502A - Unspecified fracture of the lower end of left radius, initial encounter for closed fracture - Discharge Information *PRESCRIPTION DRUG MONITORING PROGRAM REVIEWED*: Not Applicable *COPY OF PRESCRIPTION DRUG MONITORING REPORT IN PATIENT RICHARD: Not Applicable Instructions: Wrist Splint, Adult, [id number] Referrals: PCP,None [Primary Care Provider] - Forms: ED Department Discharge Additional Instructions: Discharge home. Wear splint and sling until you see ortho on Wednesday. Ice packs Sepsis Event Note (ED) - Evaluation Sepsis Screening Result: No Definite Risk - Focused Exam Vital Signs: Vital Signs Temp Pulse Resp BP Pulse Ox 01/17/21 11:55 98 F 104 H 18 191/67 H 100 - My Orders Last 24 Hours: My Active Orders 01/17/21 12:12 Wrist Comp Min 3V Lt [CR] Stat - Assessment/Plan Last 24 Hours: My Active Orders 01/17/21 12:12 Wrist Comp Min 3V Lt [CR] Stat
[2021-01-17] MEDS: Acetaminophen/HYDROcodone 325-5 MG Tab ONE (14:16)
--- NOTE | 2021-01-17 16:09 | CR ---
CLINICAL DATA: Wrist injury - fell last night. LEFT WRIST, 17 JANUARY 2021: No priors. There is an impacted, comminuted, intraarticular fracture through the distal radius. There is a mildly displaced bony avulsion from the ulnar styloid. There are osteoarthritic changes involving multiple joints. No other acute abnormalities. Job: [id number] MTDD
== END 2021-01-17 13:40 | disposition home or self-care (01) ==
LOC: LB.ED 12:08
DX: S52.592A Other fractures of lower end of left radius, initial encounter for closed fracture (principal); S00.83XA Contusion of other part of head, initial encounter; E11.9 Type 2 diabetes mellitus without complications; Z79.82 Long term (current) use of aspirin; Z88.5 Allergy status to narcotic agent; Z79.4 Long term (current) use of insulin; W18.09XA Striking against other object with subsequent fall, initial encounter; Y92.009 Unspecified place in unspecified non-institutional (private) residence as the place of occurrence of the external cause
CPT/HCPCS: 29125; 73110-LT; 96372; 99283-25; A9270-GY; J1170

== ENCOUNTER 2022-02-20 12:00 | Emergency (ER) | payer MEDICARE, OTHER ==
[2022-02-20] MEDS: Acetaminophen/HYDROcodone 325-5 MG Tab PO ONE (12:35)
[2022-02-20 21:09] VITALS: BP 185/77; PULSE 91
== END 2022-02-20 13:40 | disposition home or self-care (01) ==
LOC: LB.ED 12:00
DX: S42.202A Unspecified fracture of upper end of left humerus, initial encounter for closed fracture (principal); S40.022A Contusion of left upper arm, initial encounter; E11.9 Type 2 diabetes mellitus without complications; Z87.891 Personal history of nicotine dependence; Z88.5 Allergy status to narcotic agent; Z79.4 Long term (current) use of insulin; Z79.82 Long term (current) use of aspirin; W18.30XA Fall on same level, unspecified, initial encounter
CPT/HCPCS: 73030; 99283; A9270

== ENCOUNTER 2022-09-17 13:29 | Emergency (ER) | payer MEDICARE, OTHER ==
[2022-09-17 13:47] VITALS: BP 142/53; PULSE 92
[2022-09-17] MEDS ORDERED: Acetaminophen/HYDROcodone 325-5 MG Tab PO ONE (14:02)
[2022-09-17] MEDS ORDERED: Acetaminophen/HYDROcodone 325-5 MG Tab ONE (14:16)
== END 2022-09-17 14:28 | disposition home or self-care (01) ==
LOC: LB.ED 13:29
DX: M25.551 Pain in right hip (principal); E11.9 Type 2 diabetes mellitus without complications; Z88.5 Allergy status to narcotic agent; Z79.4 Long term (current) use of insulin; Z79.82 Long term (current) use of aspirin
CPT/HCPCS: 82947; 99283; A9270

== ENCOUNTER 2022-10-15 18:13 | Emergency (ER) | payer MEDICARE, OTHER ==
[2022-10-15] MEDS ORDERED: Sodium Chloride 0.9% 10 ML Syringe FLUSH PRN (18:39)
[2022-10-15] MEDS ORDERED: Glucagon,Human Recombinant 1 MG Vial IM PRN ×2 (18:41→21:22)
[2022-10-15] MEDS ORDERED: 50% Dextrose in Water 50 ML Syringe IVPUSH PRN ×2 (18:41→21:22)
[2022-10-15] MEDS ORDERED: Sodium Chloride 0.9% 1,000 ML IV SCH ×2 (18:45→20:15)
[2022-10-15] MEDS: Insulin Regular, Human 100 Units/ML 3 ML Vial IV ONE ×2 (19:07→20:08)
[2022-10-15 19:38] LABS: HEMATOCRIT 38.2 % (37.0-47.0); HEMOGLOBIN 12.5 g/dL (11.5-16.5); MEAN CORPUSCULAR HGB CONC 32.7 g/dL (31.0-35.0); MEAN PLATELET VOLUME 11.3 fL (6.0-10.0); RED BLOOD CELL COUNT 3.79 M/uL (3.80-5.80); RED CELL DISTRIBUTION WIDTH 12.5 % (11.0-16.0); WHITE BLOOD CELL COUNT,WBC 12.2 K/uL (4.0-11.0)
[2022-10-15] MEDS ORDERED: Insulin Regular, Human 100 Units/ML 3 ML Vial IV ONE ×2 (20:01→21:22)
[2022-10-15 20:02] LABS: CHLORIDE,CL 102 mmol/L (98-107); POTASSIUM,K 4.9 mmol/L (3.5-5.1); SODIUM,NA 140 mmol/L (136-145)
[2022-10-15 20:03] LABS: ANION GAP 36.8 mmol/L (5.0-15.0); BLOOD UREA NITROGEN,BUN 36 mg/dL (8-26); CREATININE 2.25 mg/dL (0.55-1.02); ESTIMATED GFR 22 mL/min (>60); MAGNESIUM 2.6 mg/dL (1.8-2.4); PHOSPHORUS 10.3 mg/dL (2.5-4.9)
[2022-10-15 20:05] LABS: CARBON DIOXIDE,CO2 6.1 mmol/L (21.0-32.0); GLUCOSE RANDOM 545 mg/dL (74-100); TROPONIN I HIGH SENSITIVITY 330.5 pg/ml (<=60.4)
[2022-10-15 21:03] LABS: BASE EXCESS ARTERIAL -28.6 (-2-2); BICARBONATE,ARTERIAL 4.3 mmol/L (22-26); O2 SATURATION ARTERIAL 93.4 % (95-98)
[2022-10-15] MEDS ORDERED: Sodium Bicarbonate 8.4% 50 MEQ/50 ML Syringe IVPUSH ONE ×2 (21:08→21:29)
[2022-10-15] MEDS ORDERED: Sodium Bicarbonate 8.4% 50 MEQ/50 ML Syringe ONE ×2 (21:22→21:42)
[2022-10-15] MEDS: Lactated Ringers 1,000 ML IV SCH ×2 (21:24→23:47)
[2022-10-15] MEDS ORDERED: Morphine 4 MG/ML VIAL IVPUSH ONE (21:31)
[2022-10-15] MEDS ORDERED: LORazepam 2 MG/ML SDV IVPUSH ONE (21:41)
[2022-10-15] MEDS ORDERED: Morphine 4 MG/ML VIAL ONE (21:43)
[2022-10-15] MEDS ORDERED: LORazepam 2 MG/ML SDV ONE (21:53)
[2022-10-15 22:50] LABS: APPEARANCE,URINE SLIGHTLY CLOUDY (CLEAR); COLOR,URINE YELLOW
[2022-10-15 22:51] LABS: BILIRUBIN,URINE SMALL (NEGATIVE); GLUCOSE,URINE 500 mg/dL (NEGATIVE); KETONES,URINE 80 mg/dL (NEGATIVE); NITRITE,URINE NEGATIVE (NEGATIVE); OCCULT BLOOD,URINE LARGE (NEGATIVE); PROTEIN,URINE 100 mg/dL (NEGATIVE); UROBILINOGEN,URINE 0.2 E.U./dL (0.2-1.0)
[2022-10-15 22:52] LABS: LEUKOCYTE ESTERASE,URINE TRACE (NEGATIVE)
[2022-10-15 22:53] LABS: RBC,URINE 0-5 /HPF; RENAL EPITHELIAL CELLS,URINE FEW /HPF; SQUAMOUS EPITHELIAL CELLS,UR FEW /HPF; WBC,URINE 20-30 /HPF
[2022-10-15 22:54] LABS: AMORPHOUS SEDIMENT,URINE MODERATE /HPF; BACTERIA,URINE MODERATE /HPF; FINE GRANULAR CASTS,URINE FEW /HPF
[2022-10-15 22:58] LABS: ANION GAP 31.7 mmol/L (5.0-15.0); BLOOD UREA NITROGEN,BUN 36 mg/dL (8-26); BUN/CREATININE RATIO 17.2 (6-25); CHLORIDE,CL 110 mmol/L (98-107); CREATININE 2.09 mg/dL (0.55-1.02); EST CRCL DRUG DOSING (CG) 18.26 mL/min; ESTIMATED GFR 24 mL/min (>60); GLUCOSE RANDOM 207 mg/dL (74-100); POTASSIUM,K 3.8 mmol/L (3.5-5.1); SODIUM,NA 150 mmol/L (136-145)
[2022-10-15 22:59] LABS: CALCIUM 8.2 mg/dL (8.5-10.1); KETONES,BLOOD SMALL (NEGATIVE)
[2022-10-15 23:00] LABS: CARBON DIOXIDE,CO2 12.1 mmol/L (21.0-32.0)
[2022-10-15] MEDS ORDERED: NS + KCl 20mEq/L 1,000 ML IV SCH (23:15)
[2022-10-16 03:31] VITALS: BP 80/38; PULSE 79
[2022-10-19 12:04] LABS: PO2 ARTERIAL 111.9 mmHg (80-105)
== END 2022-10-16 00:25 ==
LOC: LB.ED 18:13
DX: I63.9 Cerebral infarction, unspecified (principal); I21.4 Non-ST elevation (NSTEMI) myocardial infarction; N17.9 Acute kidney failure, unspecified; E11.65 Type 2 diabetes mellitus with hyperglycemia; E11.11 Type 2 diabetes mellitus with ketoacidosis with coma; E11.22 Type 2 diabetes mellitus with diabetic chronic kidney disease; N18.9 Chronic kidney disease, unspecified; Z88.5 Allergy status to narcotic agent; Z79.82 Long term (current) use of aspirin; Z79.4 Long term (current) use of insulin; Z79.899 Other long term (current) drug therapy
CPT/HCPCS: 36415; 36600; 70450; 72125; 80048; 80307; 81001; 82009; 82803; 82947; 83735; 84100; 84484; 85027; 87086; 93005; 93010; 96361; 96374; 96375; 99285; 99285-25; A0425; A0429; J2060; J2270; J7030; J7120